=== PATIENT | female | born 2000 | race Caucasian/White ===

== ENCOUNTER 2024-11-16 10:19 | Emergency (ER) | payer BC, SELFPAY ==
[2024-11-16 10:23] VITALS: BP 125/93; PULSE 84; TEMP 36.7; O2SAT 99; BMI 29.3
--- NOTE | 2024-11-16 10:34 | ED_ITS ---
HPI HPI - General Adult General Chief complaint: Headache Stated complaint: 10 WEEKS MIGRAINE Time Seen by Provider: 11/16/24 10:21 Source: patient Mode of arrival: walk-in History of Present Illness HPI narrative: 24-year-old female who is 10 weeks presents for a 3-day history of headache. She states she has a history of migraine headaches that she typically gets when she is . It is frontal and at the base of her skull. No trauma fever or stiff neck or localized weakness. She has had no issues with this and has no vaginal bleeding. The pain is moderate and continuous . Related Data Home Medications ?Medication ?Instructions ?Recorded ?Confirmed PO DAILY 11/16/24 ondansetron 4 mg disintegrating 4 mg PO TID-QID PRN na usea and 11/16/24 11/16/24 tablet vomiting Allergies Allergy/AdvReac Type Severity Reaction Status Date / Time adhesive tape Allergy Rash Verified 11/16/24 10:23 Review of Systems ROS Narrative A ten point review of systems is negative except as noted above. PFSH PFSH Social History Little interest or pleasure in doing things: not at all Feeling down, depressed, or hopeless: not at all Exam Narrative Exam Narrative: Nurses note and vital signs reviewed and patient is not hypoxic. General: The patient appears well and in no apparent distress. Patient is resting comfortably on cart. Skin: Warm, dry, no pallor noted. There is no rash noted. Head: Normocephalic, atraumatic; neck supple, no nuchal rigidity Eye: Normal conjunctiva, no drainage, EOMI. PERRL Ears, Nose, Mouth, and Throat: oral mucosa is moist. Nares patent. Cardiovascular: Regular Rate and Rhythm Respiratory: Patient is in no distress, no accessory muscle use, lungs are clear to auscultation, no wheezing, rales or rhonchi Back: non-tender GI: Soft and nontender Musculoskeletal: The patient has no evidence of calf tenderness, no pitting edema, symmetrical pulses noted bilaterally Neurological: A&O, normal speech; upper and lower extremity strength symmetric and intact Psychiatric: Cooperative Constitutional Vital Signs, click to edit/add: Last Vital Signs Temp 98.0 F 11/16/24 10:23 Pulse 84 11/16/24 10:23 Resp 20 11/16/24 10:23 BP 125/93 H 11/16/24 10:23 Pulse Ox 99 11/16/24 10:23 Course Vital Signs Vital signs: Vital Signs Temperature 98.0 F 11/16/24 10:23 Pulse Rate 84 11/16/24 10:23 Respiratory Rate 20 11/16/24 10:23 Blood Pressure 125/93 H 11/16/24 10:23 Pulse Oximetry 99 11/16/24 10:23 Temperature 98.0 F 11/16/24 10:23 Pulse Rate 84 11/16/24 10:23 Respiratory Rate 20 11/16/24 10:23 Blood Pressure 125/93 H 11/16/24 10:23 Pulse Oximetry 99 11/16/24 10:23 Medical Decision Making MDM Narrative Medical decision making narrative: The initial blood pressure was mildly elevated but it corrected without intervention. She is feeling much better now and wishes to be discharged and she will follow-up with her doctor in [place]. Treatment diagnosis and follow- up were discussed with the patient. Differential Diagnosis Differential Diagnosis: Migraine headache, dehydration, nonspecific headache Lab Data Lab results reviewed: Yes I reviewed the patient's lab results Labs: Lab Results 11/16/24 Range/Units 10:40 WBC 11.3 H (4.0-11.0) 10^3/uL RBC 5.03 (4.20-5.40) 10^6/uL Hgb 13.0 (12.0-16.0) g/dL Hct 39.4 (36.0-48.0) % MCV 78.3 L (81.0-99.0) fL MCH 25.8 L (26.7-34.0) pg MCHC 33.0 (29.9-35.2) g/dL RDW 14.5 (11.0-15.0) % Plt Count 284 (150-450) 10^3/uL MPV 10.4 (9.5-13.5) fL Neut % (Auto) 72.9 (43.0-75.0) % Lymph % (Auto) 21.4 (20.5-60.0) % [place] % (Auto) 4.5 (1.7-12.0) % Eos % (Auto) 0.6 L (0.9-7.0) % Baso % (Auto) 0.2 (0.2-2.0) % Neut # (Auto) 8.3 H (1.4-6.5) 10^3/uL Lymph # (Auto) 2.4 (1.2-3.8) 10^3/uL [place] # (Auto) 0.5 (0.3-0.8) 10^3/uL Eos # (Auto) 0.1 (0.0-0.7) 10^3/uL Baso # (Auto) 0.0 (0.0-0.1) 10^3/uL Abs Immat Gran (auto) 0.04 H (0.00-0.03) 10^3/uL Imm/Tot Granulo (auto) 0.4 (0.0-0.5) % Sodium 133 L (136-145) mmol/L Potassium 4.1 (3.5-5.1) mmol/L Chloride 98 (98-107) mmol/L Carbon Dioxide 26.1 (21.0-32.0) mmol/L Anion Gap 13.0 BUN 7.0 (7.0-18.0) mg/dL Creatinine 0.61 (0.55-1.02) mg/dL Est GFR ( Amer) >60 (>=60 mL/min/1.73m^2) Est GFR (Non-Af Amer) >60 (>=60 mL/min/1.73m^2) BUN/Creatinine Ratio 11.5 Glucose 114 H (74-106) mg/dL Calcium 8.9 (8.5-10.1) mg/dL Discharge Plan Discharge Chief Complaint: Headache Clinical Impression: Headache Patient Disposition: Home, Self-Care Time of Disposition Decision: 11:51 Condition: Good Mode of Transportation: Private Vehicle Prescriptions / Home Meds: No Action ondansetron 4 mg tablet,disintegrating 4 mg PO TID-QID PRN (Reason: nausea and vomiting) PO DAILY Print Language: [place] Instructions: Acute Headache (ED) Referrals: Physician,Non-Staff, MD [Primary Care Provider] - 1 week
[2024-11-16] MEDS: 0.9 % SODIUM CHLORIDE 1,000 ML 1000 ML IV (10:43)
[2024-11-16] MEDS: ONDANSETRON PF 4 MG/2 ML VIAL IV (10:44)
[2024-11-16] MEDS: DIPHENHYDRAMINE HCL 50 MG/ML VIAL 25 MG IVP (10:44)
[2024-11-16 10:45] LABS: Basophils Percent Auto 0.2 % (0.2-2.0); Eosinophils Absolute Auto 0.1 10^3/uL (0.0-0.7); Eosinophils Percent Auto 0.6 % (0.9-7.0); Hematocrit 39.4 % (36.0-48.0); Immature Granulocytes Abs Auto 0.04 10^3/uL (0.00-0.03); Immature Granulocytes Pct Auto 0.4 % (0.0-0.5); Lymphocytes Absolute Auto 2.4 10^3/uL (1.2-3.8); Lymphocytes Percent Auto 21.4 % (20.5-60.0); Mean Corpuscular Hemoglobin 25.8 pg (26.7-34.0); Mean Corpuscular Volume 78.3 fL (81.0-99.0); Mean Platelet Volume 10.4 fL (9.5-13.5); Monocytes Absolute Auto 0.5 10^3/uL (0.3-0.8); Monocytes Percent Auto 4.5 % (1.7-12.0); Neutrophils Absolute Auto 8.3 10^3/uL (1.4-6.5); Neutrophils Percent Auto 72.9 % (43.0-75.0); Platelet Count 284 10^3/uL (150-450); Red Blood Count 5.03 10^6/uL (4.20-5.40); Red Cell Distribution Width 14.5 % (11.0-15.0); White Blood Count 11.3 10^3/uL (4.0-11.0)
[2024-11-16] MEDS: METHYLPREDNISOLONE SOD SUCC PF 125 MG/2 ML VIAL IVP (10:45)
[2024-11-16 11:03] LABS: BUN Creatinine Ratio 11.5; Calcium 8.9 mg/dL (8.5-10.1); Carbon Dioxide 26.1 mmol/L (21.0-32.0); Chloride 98 mmol/L (98-107); Estimated GFR (African America >60 (>=60 mL/min/1.73m^2); Estimated GFR (Non-African Ame >60 (>=60 mL/min/1.73m^2); Glucose 114 mg/dL (74-106); Potassium 4.1 mmol/L (3.5-5.1); Sodium 133 mmol/L (136-145)
[2024-11-16 12:06] VITALS: BP 108/78
== END 2024-11-16 11:57 | disposition home or self-care (01) ==
PROVIDERS: Emergency Provider Emergency Medicine
DX: O99.891 Other specified diseases and conditions complicating pregnancy (principal); R51.9 Headache, unspecified; Z3A.10 10 weeks gestation of pregnancy
CPT/HCPCS: 36415; 80048; 85025; 96374; 96375; 99284; J1200; J2405; J2919

== ENCOUNTER 2024-12-27 10:50 | Emergency (ER) | payer BC, SELFPAY ==
--- OUTSIDE RECORDS SUMMARY | 2024-12-16 15:02 | XMS_ITS | Encounter Summary ---
Author Organization [facility] Address [address] [place] [address] Care Team Providers Care Order Editor Name Role Phone Evie Madrid DO Primary Care Provider [phone] Reason for Visit * Reason Comments Vomiting HG, cannot keep wate r or food down,seen yesterday for IV fluids. SAMANTA 06/12/2025, 15 weeks . * Auth/Cert (Routine) Specialty Diagnoses / Procedures Referred By Contac t Referred To Contact Referral ID Status Reason Start Date Expiration Date Visits Re quested Visits Authorized [id number] 1 1 Encounter Details Date Type Department Care Team (Late st Contact Info) Description 12/16/2024 3:02 PM EDT - 12/17/2024 11:00 AM EDT Hospital Encounter [facility] Emergency [id number] [place] [address] [place] [address] [place] [address] Hyperemesis gravidarum ([facility]) (Primary Dx) Discharge Disposition: Home or Self Care Social History Tobacco Use Types Packs/Day Years Used Date Smoking Tobacco: Never Smokeless Tobacco: Never Alcohol Use Standard Drinks/Week Comments Yes 0 (1 standard drink = 0.6 oz pur e alcohol) Humiliation, Afraid, Rape, and Kick questionnair e Answer Date Recorded Within the last year, have y ou been afraid of your partner or ex-partner? No 12/16/2024 Within the last year, have y ou been humiliated or emotionally abused in other ways by your partner or ex-partner? No Within the last year, have y ou been kicked, hit, slapped, or otherwise physically hurt by your partner or ex-partner? No 12/16/2024 Within the last year, have y ou been raped or forced to have any kind of sexual activity by your partner or ex-partner? No 12/16/2024 Comments Unknown Sex and Gender Information Value Date Recorded Sex Assigned at Female 09/27/2023 10:24 PM EDT Legal Sex Female 10:24 PM EDT Gender Identity Female 09/27/2023 10:24 PM EDT Sexual Orientation Straight 09/27/2023 10 :24 PM EDT documented as of this encounter Last Filed Vital Signs Vital Sign Reading Time Taken Comments Blood Pressure 106/65 12/17/2024 7:59 AM EDT Pulse 74 12/17/2024 7:59 AM EDT Temperature 36.9 C (98.4 F) 12/17/2024 7:59 AM EDT Respiratory Rate 16 12/17/2024 7:59 AM EDT Oxygen Saturation 99% 12/17/2024 7:59 AM EDT Inhaled Oxygen Concentration - - Weight 75 kg (165 lb 5.5 oz) 12/16/2024 2:31 PM EDT Height 157.5 cm (5' 2 ) 12/16/2024 2:31 PM EDT Body Mass Index 30.24 12/16/2024 2:31 PM EDT documented in this encounter Medications at Time of Discharge cholecalciferol (VITAMIN D3) 50 MCG (1999 UT) capsule Take 50 mcg by mouth daily. 11/10/2024 doxylamine (UNISOM) 25 MG Take 25 mg by mouth nightly as needed for Sleep. FIORICET 50-300-40 MG per etended-release capsule Take 1 capsule by mouth every 4 hours as needed. 11/17/2024 metoclopramide (REGLAN) 10 MG tablet Take 10 mg by mouth 3 times daily (before meals). 12/16/2024 ondansetron (ZOFRAN-ODT) 4 mg disintegrating tablet Take 4 mg by mouth every 6 hours as needed for Nausea/Vomiti ng. Pyridoxine HCl (VITAMIN B6 PO) Take 1 tablet by mouth daily. documented as of this encounter ED Notes * Ana Cristina Miranda MD - 12/16/2024 3:08 PM EDT [facility] 12/16/2024 CHIEF COMPLAINT: CHIEF COMPLAINT: Nausea and vomiting History provided by patient or other source. Ana Cristina Miranda MD acting as scribe for Attending Provider: Ana Cristina Miranda MD HISTORY OF PRESENT ILLNESS: 3:08 PM Karol Cuello is a 24 y.o. female who has a past medical history significant for anxiety presents to the Emergency Center with her aunt with complaints of nausea and vomiting for the past 3 weeks. Patient reports that she followed up with Natalie Cho, Certified Nurse End Worker at [facility] in [place], yesterday and she told me that I have hyperemesis gravidarum because I've been throwing up non-stop for the past 3 weeks. Like today I couldn't even keep water down. Patient states that she is on her fifth to sixth round of nausea medications and yesterday at the ER I got IV Zofran. Yesterday was my fourth trip to the ER for nausea and vomiting. Patient states priorto three weeks ago she was not having any issues with nausea or vomiting. Patient denies any abdominal pain or vaginal bleeding, but she notes I am getting some light cramping from all the puking I'm doing. Patient states that she has also been experiencing migraines due to all the nausea and vomiting. Patient reports that she is A2 and she will be 15 week on Wednesday (12/19). Patient states that her two prior pregnancies delivered at full term and she did not have any complications while or post delivery. Patient reports that she had heart tones yesterday and everything sounded good. I haven't had an ultrasound in a while. Patient notes that she is taking Fioricet, Vitamin D3, Zofran, Unisom and Vitamin B6 three times a day. Patient denies fever, chills, diarrhea, neck pain, back pain, chest pain, chest pressure, chest heaviness, chest tightness, lower extremity edema, calf pain, cough, congestion, sore throat or shortness of breath. There are no additional complaints or modifying factors at this time. Primary Care Physician: DO SUE Greenwood As above Patient's Medications New Prescriptions No medications on file Previous Medications EPINEPHRINE 0.3 MG/0.3ML AUTO-INJECTOR ESCITALOPRAM (LEXAPRO) 10 MG TABLET take 1 Tablet by mouth once daily. FAMOTIDINE (PEPCID) 20 MG TABLET take 1 Tablet by mouth twice daily. IBUPROFEN (MOTRIN) 600 MG TABLET take 1 Tablet by mouth every 8 hours as needed for FOR MODERATE PAIN. ONDANSETRON (ZOFRAN-ODT) 4 MG DISINTEGRATING TABLET take 1 Tablet by mouth every 6 hours as needed for FOR NAUSEA/VOMITING. Modified Medications No medications on file Discontinued Medications No medications on file Allergies[1] Past Medical History[2] Past Surgical History[3] Social History Socioeconomic History Marital status: Tobacco Use Smoking status: Never Smokeless tobacco: Never Substance and Sexual Activity Alcohol use: Yes Drug use: Yes Types: Marijuana Family History[4] PHYSICAL EXAM: BP 114/80 Pulse 86 Temp 36.3 ??C (Oral) Resp 20 Ht 1.575 m (5' 2 ) Wt 75 kg SpO2 99% BMI 30.24 kg/m?? Physical Exam Constitutional: General: She is not in acute distress. Appearance: She is not ill-appearing. HENT: Head: Normocephalic. Mouth/Throat: Mouth: Mucous membranes are dry. Comments: Slightly dry mucus membranes. Eyes: Pupils: Pupils are equal, round, and reactive to light. Cardiovascular: Rate and Rhythm: Normal rate and regular rhythm. Pulmonary: Effort: Pulmonary effort is normal. Breath sounds: Normal breath sounds. Abdominal: General: Abdomen is flat. Palpations: Abdomen is soft. Tenderness: There is no abdominal tenderness. Comments: Gravid. Skin: General: Skin is warm and dry. Capillary Refill: Capillary refill takes 2 to 3 seconds. Neurological: General: No focal deficit present. Psychiatric: Mood and Affect: Mood normal. RESULTS: Results for orders placed or performed during the hospital encounter of 12/16/24 Complete Blood Count w/Differential Result Value Ref Range White Blood Cell 10.8 (H) 3.3 - 10.7 x10*9/L Red Blood Cell 4.46 3.87 - 5.08 x10*12/L Hemoglobin 11.1 (L) 12.1 - 15.0 g/dL Hematocrit 34.3 (L) 35.4 - 44.2 % Mean Cell Volume 76.9 (L) 79.5 - 100.4 fL Mean Cell Hemoglobin 24.9 (L) 27.5 - 33.4 pg Mean Cell Hemoglobin Concentration 32.4 31.5 - 35.4 g/dL Red Cell Distribution Width 14.3 11.5 - 15.4 % Platelet 255 150 - 400 x10*9/L Mean Platelet Volume 10.6 8.0 - 12.0 fL Neutrophil Automated Absolute 8.47 (H) 1.55 - 7.24 x10*9/L Lymphocyte Automated Absolute 1.82 1.05 - 4.04 x10*9/L Monocyte Automated Absolute 0.42 0.00 - 0.84 x10*9/L Eosinophil Automated Absolute 0.04 0.00 - 0.54 x10*9/L Basophil Automated Absolute 0.02 0.00 - 0.14 x10*9/L Immature Granulocyte Automated Absolute 0.06 (H) 0.00 - 0.03 x10*9/L Immature Granulocyte Automated 0.6 0.0 - 1.0 % NUCLEATED RED BLOOD CELLS AUTOMATED 0.0 <=0.0 % Basic Metabolic Panel (BMP) Result Value Ref Range Sodium 134 (L) 135 - 145 mmol/L Potassium 3.8 3.5 - 5.2 mmol/L Chloride 106 98 - 111 mmol/L Bicarbonate 19 (L) 20 - 29 mmol/L Anion Gap 9 5 - 17 mmol/L Glucose 89 70 - 99 mg/dL Blood Urea Nitrogen (BUN) 5 (L) 7 - 25 mg/dL Creatinine 0.53 0.50 - 1.10 mg/dL eGFR 133 >60 mL/min/1.73 m2 Calcium 8.6 8.5 - 10.5 mg/dL Beta Human Chorionic Gonadotropin (hCG) Quantitative Result Value Ref Range Human Chorionic Gonadotropin Quantitative 64,297 (H) <=5 mIU/mL Urinalysis with Microscopic Narrative The following orders were created for panel order Urinalysis with Microscopic. Procedure Abnormality Status --------- ------ Urinalysis With Microsc...[[id number]] Abnormal Final result Urine Mathur Tube[[id number]] Final result Please view results for these tests on the individual orders. Urinalysis With Microscopic Result Value Ref Range Urine Color Yellow Urine Clarity Clear Clear Urine Glucose Negative Negative mg/dL Urine Bilirubin Negative Negative Urine Ketones >=80 (P) Negative mg/dL Urine Specific [place] 1.013 1.005 - 1.030 Urine Blood Negative Negative U pH 6.0 5.0 - 8.0 Urine Protein Negative Negative mg/dL Urine Urobilinogen 1.0 <2.0 mg/dL Urine Nitrite Negative Negative Urine Leukocyte Esterase Negative Negative Urine RBC 0-2 0-2 Negative /HPF Urine WBC 0-5 0-5 Negative /HPF Urine Squamous Epithelial Cells 0-2 0 - 5 /HPF Urine Hyaline Casts 0-2 0-2 Negative /LPF Urine Bacteria Negative Negative /HPF Urinalysis with Microscopic Narrative The following orders were created for panel order Urinalysis with Microscopic. Procedure Abnormality Status --------- ------ Urinalysis With Microsc...[[id number]] Abnormal Final result Urine Mathur Tube[[id number]] In process Please view results for these tests on the individual orders. Urinalysis With Microscopic Result Value Ref Range Urine Color Yellow Urine Clarity Clear Clear Urine Glucose Negative Negative mg/dL Urine Bilirubin Negative Negative Urine Ketones >=80 (P) Negative mg/dL Urine Specific [place] 1.021 1.005 - 1.030 Urine Blood Negative Negative U pH 6.0 5.0 - 8.0 Urine Protein Negative Negative mg/dL Urine Urobilinogen 1.0 <2.0 mg/dL Urine Nitrite Negative Negative Urine Leukocyte Esterase Negative Negative Urine RBC 0-2 0-2 Negative /HPF Urine WBC 0-5 0-5 Negative /HPF Urine Squamous Epithelial Cells 0-2 0 - 5 /HPF Urine Hyaline Casts 0-2 0-2 Negative /LPF Urine Bacteria Negative Negative /HPF Electrocardiogram, Complete Narrative Ventricular Rate 73 BPM Atrial Rate 73 BPM P-R Interval 176 ms QRS Duration 88 ms Q-T Interval 400 ms QTC Calculation(Bazett) 440 ms Calculated P Gilman 29 degrees Calculated R Gilman 18 degrees Calculated T Gilman 2 degrees Diagnosis Normal sinus rhythm Normal ECG No previous ECGs available Confirmed by Fernando Crockett ([id number]) on 12/16/2024 5:36:07 PM ED COURSE/MDM: 3:08 PM I have evaluated the patient and reviewed their electronic medical record. Laboratory studies including CBC, BMP, beta hCG as well as a urinalysis and an EKG will be obtained. Patient will begiven Zofran, an IV Bolus, Fioricet and Phenergan. 3:31 PM Spoke with [facility] application engineer physician who states that they can get the patient into the office for an appointment on Wednesday, December 18, 2024 and it is okay to start Phenergan now andat time of discharge in addition to her current regimen. scallop cutter physician also requesting heart tones. 3:58 PM Bedside heart tones 141 BPM. Robust movement noted. Deferred pelvic exam in theabsence of any pelvic/ complaints. 7:50 PM Patient notes improvement in headache and symptoms. She is feeling improved. Tolerated PO challenge per bedside RN. Plan for repeat UA to assess for improvement of urine ketones. 9:58 PM UA still with greater than 80 ketones. Patient notes tolerating PO but still has low level nausea. Nervous about going home. Will keep in EC observation for continued hydration with repeat UAin the AM and I have written for ongoing antiemetics. EC Medical Decision Making Documentation: 1. Consideration of Admission/Observation/Escalation of care including admission/observation was see above 2. Discussion with Other Healthcare Providers Management of the patient was discussed with the following healthcare providers: other: application engineer physician of [facility]. 3. Independent Interpretation I performed an independent interpretation of the following: Rhythm strip: My interpretation is NSR 4. Discussion of Findings with Radiology There were no discussions with radiology about test interpretation. 5. Discussion with Independent Historian There were no discussions with any independent historians besides the patient. 6. Review of External (Non-ED) Record see above 7. Tests Considered But Not Performed see above 8. Prescription Medication Considered But Not Given see above 9. Chronic Condition Affecting Care Patient's care was impacted by: Other: 10. Social Determinants of Health Significantly Affecting Care There were no social drivers of health (e.g., housing, economic circumstances, unemployment) that affected care of the patient. DISPOSITION: EC Observation FINAL IMPRESSION: Hyperemesis gravidarum Core Measure ED Treatment Team Provider Role From To Ana Cristina Miranda MD Attending Provider 12/16/24 2810 -- Note has been documented by Nicolas Sesay (Route Contractor) on 12/16/2024. [1] Allergies Allergen Reactions Iodine Other When applied to skin caused blisters( betadine solution) Wound Dressing Adhesive Hives and Rash/Itching [2] Past Medical History: Diagnosis Date Anxiety disorder Motion sickness Panic attacks Postoperative nausea and vomiting Shoulder instability, left [3] Past Surgical History: Procedure Laterality Date HX OTHER SURGICAL HISTORY Right 12/2015 shoulder arthroscopy, labral tear repair HX OTHER SURGICAL HISTORY Left 06/25/2016 arthroscopy, labral tear repair HX WISDOM TEETH EXTRACTION 11/2015 [4] Family History Problem Relation Age of Onset Bipolar Disorder Mother Hypertension Father Gout Sister Kayley Disease Sister Bipolar Disorder Sister Cervical Cancer Maternal Grandmother Ana Cristina Miranda MD 12/16/24 2200 documented in this encounter Miscellaneous Notes * ED Progress Note - Marsha Leon MD - 12/17/2024 9:01 AM EDT Images from the original note were not included. ECS ED Observation History and Physical 12/17/2024 CHIEF COMPLAINT: Vomiting ASSESSMENT / PLAN: Hyperemesis Ua ketones resolved this morning Pt did eat No abd pain Abd-soft,nt,nd No vaginal bleeding Has followup with ob SUBJECTIVE: Karol Cuello is a 24 y.o. female being placed in observation in the ED. For rest of historyplease refer to original ED note. Problem List[1] Past Medical History: Diagnosis Date Anxiety disorder Motion sickness Panic attacks Postoperative nausea and vomiting Shoulder instability, left Past Surgical History: Procedure Laterality Date HX OTHER SURGICAL HISTORY Right 12/2015 shoulder arthroscopy, labral tear repair HX OTHER SURGICAL HISTORY Left 06/25/2016 arthroscopy, labral tear repair HX WISDOM TEETH EXTRACTION 11/2015 Current Medications[2] Allergies[3] Social History[4] Family History Problem Relation Age of Onset Bipolar Disorder Mother Hypertension Father Gout Sister Kayley Disease Sister Bipolar Disorder Sister Cervical Cancer Maternal Grandmother Review of Systems OBJECTIVE: BP 106/65 Pulse 74 Temp 36.9 ??C (Oral) Resp 16 Ht 1.575 m (5' 2 ) Wt 75 kg SpO2 99% BMI 30.24 kg/m?? Please refer to ED note for physical exam PERTINENT LABS AND STUDIES: Labs Reviewed COMPLETE BLOOD COUNT (CBC) W/DIFFERENTIAL - Abnormal Result Value White Blood Cell 10.8 (*) Red Blood Cell 4.46 Hemoglobin 11.1 (*) Hematocrit 34.3 (*) Mean Cell Volume 76.9 (*) Mean Cell Hemoglobin 24.9 (*) Mean Cell Hemoglobin Concentration 32.4 Red Cell Distribution Width 14.3 Platelet 255 Mean Platelet Volume 10.6 Neutrophil Automated Absolute 8.47 (*) Lymphocyte Automated Absolute 1.82 Monocyte Automated Absolute 0.42 Eosinophil Automated Absolute 0.04 Basophil Automated Absolute 0.02 Immature Granulocyte Automated Absolute 0.06 (*) Immature Granulocyte Automated 0.6 NUCLEATED RED BLOOD CELLS AUTOMATED 0.0 BASIC METABOLIC PANEL - Abnormal Sodium 134 (*) Potassium 3.8 Chloride 106 Bicarbonate 19 (*) Anion Gap 9 Glucose 89 Blood Urea Nitrogen (BUN) 5 (*) Creatinine 0.53 eGFR 133 Calcium 8.6 HCG, QUANTITATIVE - Abnormal Human Chorionic Gonadotropin Quantitative 64,297 (*) URINALYSIS WITH MICROSCOPIC - Abnormal Urine Color Yellow Urine Clarity Clear Urine Glucose Negative Urine Bilirubin Negative Urine Ketones >=80 (*) Urine Specific [place] 1.013 Urine Blood Negative U pH 6.0 Urine Protein Negative Urine Urobilinogen 1.0 Urine Nitrite Negative Urine Leukocyte Esterase Negative Urine RBC 0-2 Urine WBC 0-5 Urine Squamous Epithelial Cells 0-2 Urine Hyaline Casts 0-2 Urine Bacteria Negative URINALYSIS WITH MICROSCOPIC - Abnormal Urine Color Yellow Urine Clarity Clear Urine Glucose Negative Urine Bilirubin Negative Urine Ketones >=80 (*) Urine Specific [place] 1.021 Urine Blood Negative U pH 6.0 Urine Protein Negative Urine Urobilinogen 1.0 Urine Nitrite Negative Urine Leukocyte Esterase Negative Urine RBC 0-2 Urine WBC 0-5 Urine Squamous Epithelial Cells 0-2 Urine Hyaline Casts 0-2 Urine Bacteria Negative URINALYSIS WITH MICROSCOPIC Narrative: The following orders were created for panel order Urinalysis with Microscopic. Procedure Abnormality Status --------- ------ Urinalysis With Microsc...[[id number]] Abnormal Final result Urine Mathur Tube[[id number]] Final result Please view results for these tests on the individual orders. URINE MATHUR TUBE URINALYSIS WITH MICROSCOPIC Narrative: The following orders were created for panel order Urinalysis with Microscopic. Procedure Abnormality Status --------- ------ Urinalysis With Microsc...[[id number]] Abnormal Final result Urine Mathur Tube[[id number]] Final result Please view results for these tests on the individual orders. URINE MATHUR TUBE URINALYSIS WITH MICROSCOPIC Narrative: The following orders were created for panel order Urinalysis with Microscopic. Procedure Abnormality Status --------- ------ Urinalysis With Microsc...[[id number]] Final result Urine Mathur Tube[[id number]] Final result Please view results for these tests on the individual orders. URINALYSIS WITH MICROSCOPIC Urine Color Yellow Urine Clarity Clear Urine Glucose Negative Urine Bilirubin Negative Urine Ketones Negative Urine Specific [place] 1.017 Urine Blood Negative U pH 7.5 Urine Protein Negative Urine Urobilinogen 1.0 Urine Nitrite Negative Urine Leukocyte Esterase Negative Urine RBC 0-2 Urine WBC 0-5 Urine Squamous Epithelial Cells 0-2 Urine Hyaline Casts 0-2 Urine Bacteria Negative URINE MATHUR TUBE No orders to display CSN: [id number] Electronically signed by: [1] Patient Active Problem List Diagnosis Menorrhagia with regular cycle Iron deficiency anemia due to chronic blood loss Screening for malignant neoplasm of the cervix Traumatic bone cyst of jaw Anxiety [2] Current Facility-Administered Medications Medication Dose Route Frequency Provider Last Rate Last Admin ondansetron (ZOFRAN) injection 4 mg 4 mg Intravenous Q8H PRN Ana Cristina Miranda MD 4 mg at 12/16/24 1120 promethazine (PHENERGAN) 25 mg in dextrose 5% 51 mL IVPB 25 mg Intravenous Q6H PRN Ana Cristina Miranda MD Stopped at 12/17/24 0637 sodium chloride 0.9% (NS) infusion 125 mL/hr Intravenous Continuous Ana Cristina Miranda MD 125 mL/hr at 12/17/24 0427 125 mL/hr at 12/17/24 0427 Current Outpatient Medications Medication Sig Dispense Refill cholecalciferol (VITAMIN D3) 50 MCG (1999 UT) capsule Take 50 mcg by mouth daily. doxylamine (UNISOM) 25 MG Take 25 mg by mouth nightly as needed for Sleep. FIORICET 50-300-40 MG per etended-release capsule Take 1 capsule by mouth every 4 hours as needed. metoclopramide (REGLAN) 10 MG tablet Take 10 mg by mouth 3 times daily (before meals). ondansetron (ZOFRAN-ODT) 4 mg disintegrating tablet Take 4 mg by mouth every 6 hours as needed for Nausea/Vomiting. Pyridoxine HCl (VITAMIN B6 PO) Take 1 tablet by mouth daily. [3] Allergies Allergen Reactions Iodine Other When applied to skin caused blisters( betadine solution) Wound Dressing Adhesive Hives and Rash/Itching [4] Social History Socioeconomic History Marital status: Tobacco Use Smoking status: Never Smokeless tobacco: Never Substance and Sexual Activity Alcohol use: Yes Drug use: Yes Types: Marijuana * ED Nurse Note - Bruce Kelley RN - 12/17/2024 7:19 AM EDT Received report from EC RNLore. Pt A&Ox4, ABC's intact, VSS, RR even and unlabored on RA, call light and personal belongings within reach. Safety precautions maintained. 0905 Pt regular diet per Dr. Leon. Pt updated 1030 Pt tolerated breakfast well. Discharge order in and discharge teaching performed for pt and pt's father at bedside. All questions answered. IV removed without complications. All acute needs met. * ED Nurse Note - Lore Puentes - 12/16/2024 11:17 PM EDT Assumed care of pt, introduced self. On first encounter pt is resting comfortably in stretcher. Pt displays no s/s of acute distress. RR even and unlabored, ABC's intact. Bed locked and in lowest position. Call light within reach, all safety precautions maintained. * ED Nurse Note - Hernando Perez - 12/16/2024 7:38 PM EDT Assumed care of pt. Introduced self and explained POC. On first encounter, pt is resting comfortably in stretcher. Pt displays no s/s of acute distress. RR even and unlabored. ABC's intact. Bed is locked and in lowest position. Call light within reach. All safety precautions maintained. * ED Nurse Note - Rosanne Hubbard RN - 12/16/2024 4:02 PM EDT Initial encounter with pt. preforming bedside ultrasound, + hear tones HR 141. Pt lying in stretcher, A&OX4, speech clear. Pt presents to EC c/o N/V. Pt currently 15 weeks . Pt seen here yesterday for same given IV fluids and Zofran. Pt states she is unable to keep foodand fluids down prompting her visit today. Pt denies any further concerns at this time, call light within reach. Pt updated with plan of care. 1755 Pt passed PO challenge, ECP made aware. Pt states nausea and CASTREJON have improved. Pt updated with planof care. No concerns at this time, call light within reach. documented in this encounter Plan of Treatment Not on file documented as of this encounter Procedures Procedure Name Priority Date/Time Associated Diagnosis Comments URINE MATHUR TUBE Timed 12/17/2024 6:38 AM EDT URINALYSIS WITH MICROSCOPIC Timed 12/17/2024 6:38 AM EDT URINALYSIS WITH MICROSCOPIC STAT 12/17/2024 6:38 AM EDT URINE MATHUR TUBE Timed 12/16/2024 9:18 PM EDT URINALYSIS WITH MICROSCOPIC Timed 12/16/2024 9:18 PM EDT URINALYSIS WITH MICROSCOPIC STAT 12/16/2024 9:18 PM EDT URINE MATHUR TUBE Timed 12/16/2024 5:00 PM EDT URINALYSIS WITH MICROSCOPIC Timed 12/16/2024 5:00 PM EDT URINALYSIS WITH MICROSCOPIC STAT 12/16/2024 5:00 PM EDT ELECTROCARDIOGRAM, COMPLETE STAT 12/16/2024 4:07 PM EDT COMPLETE BLOOD COUNT (CBC) W/DIFFERENTIAL STAT 12/16/2024 3:31 PM EDT HCG, QUANTITATIVE STAT 12/16/2024 3:3 1 PM EDT BASIC METABOLIC PANEL STAT 12/16/2024 3:31 PM EDT documented in this encounter Results * Urine Mathur Tube (12/17/2024 6:38 AM EDT) Urine URINE SPECIMEN OBTAINED BY CLEAN CATCH PROCEDURE / Unknown 12/17/2024 6:38 AM EDT 12/17/2024 6:43 AM EDT us Ana Cristina Miranda MD LAB URINE ORDERABLES Final Re sult [facility] [id number] [place] [address] * Urinalysis With Microscopic (12/17/2024 6:38 AM EDT) Urine Color Yellow 12/17/2024 6:51 AM EDT [facility] Urine Clarity Clear Clear 12/17/2024 6:51 AM EDT [facility] Urine Glucose Negative Negative mg/dL 12/17/2024 6:51 AM T [facility] Urine Bilirubin Negative Negative 6:51 AM EDT [facility] Urine Ketones Negative Negative mg/dL 12/17/2024 6:51 AM EDT [facility] Urine Specific [place] 1.017 1.005 - 1.030 12/17/2024 6:51 AM EDT [facility] Urine Blood Negative Negative 12/17/2024 6:51 AM [facility] U pH 7.5 5.0 - 8.0 12/17/2024 6:51 AM T [facility] Urine Protein Negative Negative mg/dL 12/17/2024 6:51 AM T [facility] Urine Urobilinogen 1.0 <2.0 mg/dL 12/17/2024 6:51 AM T [facility] Urine Nitrite Negative Negative 12/17/2024 6:51 AM [facility] Urine Leukocyte Esterase Negative Negative 12/17/2024 6:51 AM T [facility] Urine RBC 0-2 0-2 Negative /HPF 12/17/2024 6:51 AM [facility] Urine WBC 0-5 0-5 Negative /HPF 12/17/2024 6:51 AM EDT [facility] Urine Squamous Epithelial Cells 0-2 0 - 5 /HPF 12/17/2024 6:51 AM T [facility] Comment:Epithelial cell coun t may include squamous, transitional and renal tubular epithelial cells Urine Hyaline Casts 0-2 0-2 Negative /LPF 12/17/2024 6:51 AM EDT [facility] Comment: Total cast count will include hyaline casts and may include pathologic casts. See report below for pathologic casts identification, if present. Urine Bacteria Negative Negative /HPF 12/17/2024 6:51 AM EDT [facility] Urine URINE SPECIMEN OBTAINED BY CLEAN CATCH PROCEDURE / Unknown 12/17/2024 6:38 AM EDT 12/17/2024 6:43 AM EDT Ana Cristina Miranda MD LAB URINE ORDERABLES Final Re sult Performing Organization Address [facility]/ZIP Co de Phone Number [facility] [address] [place] [address] * Urine Mathur Tube (12/16/2024 9:18 PM EDT) Urine URINE SPECIMEN OBTAINED BY CLEAN CATCH PROCEDURE / Unknown 12/16/2024 9:18 PM EDT 12/16/2024 9:24 PM EDT Ana Cristina Miranda MD LAB URINE ORDERABLES Final Re sult Performing Organization Address City/[facility]/ZIP Co de Phone Number [facility] [address] [place] [address] * (ABNORMAL) Urinalysis With Microscopic (12/16/2024 9:18 PM EDT) Urine Color Yellow 12/16/2024 9:38 PM EDT [facility] Urine Clarity Clear Clear 12/16/2024 9:38 PM EDT [facility] Urine Glucose Negative Negative mg/dL 12/16/2024 9:38 PM EDT [facility] Urine Bilirubin Negative Negative 9:38 PM EDT [facility] Urine Ketones >=80(CRITIC AL) Negative mg/dL 12/16/2024 9:38 PM EDT [facility] Urine Specific [place] 1.021 1.005 - 1.030 12/16/2024 9:38 PM EDT [facility] Urine Blood Negative Negative 12/16/2024 9:38 PM EDT [facility] U pH 6.0 5.0 - 8.0 12/16/2024 9:38 PM EDT [facility] Urine Protein Negative Negative mg/dL 12/16/2024 9:38 PM EDT [facility] Urine Urobilinogen 1.0 <2.0 mg/dL 12/16/2024 9:38 PM EDT [facility] Urine Nitrite Negative Negative 12/16/2024 9:38 PM EDT [facility] Urine Leukocyte Esterase Negative Negative 12/16/2024 9:38 PM EDT [facility] Urine RBC 0-2 0-2 Negative /HPF 12/16/2024 9:38 PM EDT [facility] Urine WBC 0-5 0-5 Negative /HPF 12/16/2024 9:38 PM EDT [facility] Urine Squamous Epithelial Cells 0-2 0 - 5 /HPF 12/16/2024 9:38 PM EDT [facility] Comment:Epithelial cell coun t may include squamous, transitional and renal tubular epithelial cells Urine Hyaline Casts 0-2 0-2 Negative /LPF 12/16/2024 9:38 PM EDT [facility] Comment: Total cast count will include hyaline casts and may include pathologic casts. See report below for pathologic casts identification, if present. Urine Bacteria Negative Negative /HPF 12/16/2024 9:38 PM T [facility] Urine URINE SPECIMEN OBTAINED BY CLEAN CATCH PROCEDURE / Unknown 12/16/2024 9:18 PM EDT 12/16/2024 9:24 PM EDT us Ana Cristina Palomba MD LAB URINE ORDERABLES Final Re sult Performing Organization Address City/[facility]/ZIP Co de Phone Number [facility] [address] [place] [address] * Urine Mathur Tube (12/16/2024 5:00 PM EDT) Urine URINE SPECIMEN OBTAINED BY CLEAN CATCH PROCEDURE / Unknown 12/16/2024 5:00 PM EDT 12/16/2024 5:04 PM EDT Ana Cristina Miranda MD LAB URINE ORDERABLES Final Re sult Performing Organization Address [facility] Co de Phone Number [facility] [address] [place] [address] * (ABNORMAL) Urinalysis With Microscopic (12/16/2024 5:00 PM EDT) Urine Color Yellow 12/16/2024 5:26 PM EDT [facility] Urine Clarity Clear Clear 12/16/2024 5:26 PM EDT [facility] Urine Glucose Negative Negative mg/dL 12/16/2024 5:26 PM EDT [facility] Urine Bilirubin Negative Negative 5:26 PM EDT [facility] Urine Ketones >=80(CRITIC AL) Negative mg/dL 12/16/2024 5:26 PM EDT [facility] Comment:Critical call waived per policy Urine Specific [place] 1.013 1.005 - 1.030 12/16/2024 5:26 PM EDT [facility] Urine Blood Negative Negative 12/16/2024 5:26 PM EDT [facility] U pH 6.0 5.0 - 8.0 12/16/2024 5:26 PM EDT [facility] Urine Protein Negative Negative mg/dL 12/16/2024 5:26 PM EDT [facility] Urine Urobilinogen 1.0 <2.0 mg/dL 12/16/2024 5:26 PM EDT [facility] Urine Nitrite Negative Negative 12/16/2024 5:26 PM EDT [facility] Urine Leukocyte Esterase Negative Negative 12/16/2024 5:26 PM EDT [facility] Urine RBC 0-2 0-2 Negative /HPF 12/16/2024 5:26 PM EDT [facility] Urine WBC 0-5 0-5 Negative /HPF 12/16/2024 5:26 PM EDT [facility] Urine Squamous Epithelial Cells 0-2 0 - 5 /HPF 12/16/2024 5:26 PM EDT [facility] Comment:Epithelial cell coun t may include squamous, transitional and renal tubular epithelial cells Urine Hyaline Casts 0-2 0-2 Negative /LPF 12/16/2024 5:26 PM EDT [facility] Comment: Total cast count will include hyaline casts and may include pathologic casts. See report below for pathologic casts identification, if present. Urine Bacteria Negative Negative /HPF 12/16/2024 5:26 PM EDT [facility] Urine URINE SPECIMEN OBTAINED BY CLEAN CATCH PROCEDURE / Unknown 12/16/2024 5:00 PM EDT 12/16/2024 5:04 PM EDT us Ana Cristina Miranda MD LAB URINE ORDERABLES Final Re sult [facility] [address] [place] [address] * Electrocardiogram, Complete (12/16/2024 4:07 PM EDT) 12/16/2024 4:07 PM EDT 12/16/2024 5:36 PM EDT Narrative [facility] - 12/16/2024 5:36 PM EDT Ventricular Rate 73 BPM Atrial Rate 73 BPM P-R Interval 176 ms QRS Duration 88 ms Q-T Interval 400 ms QTC Calculation(Bazett) 440 ms Calculated P Gilman 29 degrees Calculated R Gilman 18 degrees Calculated T Gilman 2 degrees Diagnosis Normal sinus rhythm Normal ECG No previous ECGs available Confirmed by Fernando Crockett ([id number]) on 12/16/2024 5:36:07 PM Procedure Note Fernando Crockett MD - 12/16/2024 Ventricular Rate 73 BPM Atrial Rate 73 BPM P-R Interval 176 ms QRS Duration 88 ms Q-T Interval 400 ms QTC Calculation(Bazett) 440 ms Calculated P Gil[place] 29 degrees Calculated R Gilman 18 degrees Calculated T Gilman 2 degrees Diagnosis Normal sinus rhythm Normal ECG No previous ECGs available Confirmed by Fernando Crockett ([id number]) on 12/16/2024 5:36:07 PM us Ana Cristina Miranda MD ECG ORDERABLES Final Result Performing Organization Address City/[facility]/ZIP Co de Phone Number [facility] * (ABNORMAL) Beta Human Chorionic Gonadotropin (hCG) Quantitative (12/16/2024 3:31 PM EDT) Pathologist [facility] Human Chorionic Gonadotropin Quantitative 64,297(H) <=5 mIU/mL 12/16/2024 4:34 PM EDT [facility] Blood VENOUS BLOOD SPECIMEN / Unknown Collection / Unknown 12/16/2024 3:31 PM EDT 12/16/2024 3:35 PM EDT us Ana Cristina Miranda MD LAB BLOOD ORDERABLES Final Re sult [facility] [address] [place] [address] * (ABNORMAL) Basic Metabolic Panel (BMP) (12/16/2024 3:31 PM EDT) [facility] Sodium 134(L) 135 - 145 mmol/L 12/16/2024 4:16 PM EDT [facility] Potassium 3.8 3.5 - 5.2 mmol/L 12/16/2024 4:16 PM EDT [facility] Chloride 106 98 - 111 mmol/L 12/16/2024 4:16 PM EDT [facility] Bicarbonate 19(L) 20 - 29 mmol/L 12/16/2024 4:16 PM EDT [facility] Anion Gap 9 5 - 17 mmol/L 12/16/2024 4:16 PM EDT [facility] Glucose 89 70 - 99 mg/dL 12/16/2024 4:16 PM EDT [facility] Blood Urea Nitrogen (BUN) 5(L) 7 - 25 mg/dL 12/16/2024 4:16 PM EDT [facility] Creatinine 0.53 0.50 - 1.10 mg/dL 12/16/2024 4:16 PM EDT [facility] eGFR 133 >60 mL/min/1. 73 m2 12/16/2024 4:16 PM EDT [facility] Comment: Calculation based on the Chronic Kidney Disease Epidemiology Collaboration (CKD- EPI) equation refit without adjustment for race. Glomerular Filtration Rate is estimated from serum creatinine, age and gender using the CKD-EPI equation. CKD-EPI eGFR is best used for detection of chronic kidney disease in clinically Stable patients. DO NOT USE VALUES FROM THIS EQUATION FOR DRUG DOSING. It has not yet been validated for drug dosing or for patients with rapidly changing clinical situations (inpatient care). Calcium 8.6 8.5 - 10.5 mg/dL 12/16/2024 4:16 PM EDT [facility] Blood VENOUS BLOOD SPECIMEN / Unknown Collection / Unknown 12/16/2024 3:31 PM EDT 12/16/2024 3:35 PM EDT Ana Cristina Miranda MD LAB BLOOD ORDERABLES Final Re sult [facility] [address] [place] [address] * (ABNORMAL) Complete Blood Count w/Differential (12/16/2024 3:31 PM EDT) White Blood Cell 10.8(H) 3.3 - 10.7 x10*9/L 12/16/2024 3:41 PM EDT [facility] Red Blood Cell 4.46 3.87 - 5.08 x10*12/L 12/16/2024 3:41 PM EDT [facility] Hemoglobin 11.1(L) 12.1 - 15.0 g/dL 12/16/2024 3:41 PM EDT [facility] Hematocrit 34.3(L) 35.4 - 44.2 % 12/16/2024 3:41 PM EDT [facility] Mean Cell Volume 76.9(L) 79.5 - 100.4 fL 12/16/2024 3:41 PM EDT [facility] Mean Cell Hemoglobin 24.9(L) 27.5 - 33.4 pg 12/16/2024 3:41 PM EDT [facility] Mean Cell Hemoglobin Concentration 32.4 31.5 - 35.4 g/dL 12/16/2024 3:41 PM EDT [facility] Red Cell Distribution Width 14.3 11.5 - 15.4 % 12/16/2024 3:41 PM EDT [facility] Platelet 255 150 - 400 x10*9/L 12/16/2024 3:41 PM EDT [facility] Mean Platelet Volume 10.6 8.0 - 12.0 fL 12/16/2024 3:41 PM EDT [facility] Neutrophil Automated Absolute 8.47(H) 1.55 - 7.24 x10*9/L 12/16/2024 3:41 PM EDT [facility] Lymphocyte Automated Absolute 1.82 1.05 - 4.04 x10*9/L 12/16/2024 3:41 PM EDT [facility] Monocyte Automated Absolute 0.42 0.00 - 0.84 x10*9/L 12/16/2024 3:41 PM EDT [facility] Eosinophil Automated Absolute 0.04 0.00 - 0.54 x10*9/L 12/16/2024 3:41 PM EDT [facility] Basophil Automated Absolute 0.02 0.00 - 0.14 x10*9/L 12/16/2024 3:41 PM EDT [facility] Immature Granulocyte Automated Absolute 0.06(H) 0.00 - 0.03 x10*9/L 12/16/2024 3:41 PM EDT [facility] Immature Granulocyte Automated 0.6 0.0 - 1.0 % 12/16/2024 3:41 PM EDT [facility] NUCLEATED RED BLOOD CELLS AUTOMATED 0.0 <=0.0 % 12/16/2024 3:41 PM EDT [facility] Blood VENOUS BLOOD SPECIMEN / Unknown Collection / Unknown 12/16/2024 3:31 PM EDT 12/16/2024 3:34 PM EDT us Ana Cristina Miranda MD LAB BLOOD ORDERABLES Final Re sult [facility] [address] [place], [place] [id number] documented in this encounter Visit Diagnoses Diagnosis Hyperemesis gravidarum ([facility])- Primary Mild hyperemesis gravidarum, unspecified as to episode of care documented in this encounter Administered Medications Inactive Administered Medications - up to 3 most recent administrations Medication Order MAR Action Action Date Dose Rate Site xlnudslqjn-krcewuhifaeuw-scq feine (Fioricet,Esgic) 50-325-40 mg per tablet 2 tablet 2 tablet, Oral, Once, On 12/16/24 at 1645, For 1 dose, Maximum dose of acetaminophen is 4000 mg from all sources in 24 hours. Given 12/16/2024 4:29 PM EDT 2 tablets ondansetron (ZOFRAN) injection 4 mg 4 mg (0.0533 mg/kg), Intravenous, Once, On 12/16/24 at 1600, For 1 dose Given 12/16/2024 3:45 PM EDT 4 mg ondansetron (ZOFRAN) injection 4 mg 4 mg (0.0533 mg/kg), Intravenous, Every 8 hours PRN, Nausea/Vomiting, Starting on 12/16/24 at 2152 Given 12/16/2024 10:59 PM EDT 4 mg promethazine (PHENERGAN) 25 mg in dextrose 5% 51 mL IVPB 25 mg (0.333 mg/kg), Intravenous, at 204 mL/hr, Administer over 15 Minutes, Once, On 12/16/24 at 1630, For 1 dose 12/16/2024 4:29 PM EDT 25 mg 204 mL/hr promethazine (PHENERGAN) 25 mg in dextrose 5% 51 mL IVPB 25 mg (0.333 mg/kg), Intravenous, at 204 mL/hr, Administer over 15 Minutes, Every 6 hours PRN, Nausea/Vomiting (Use 2nd), Starting on 12/16/24 at 2151 New Bag 12/17/2024 4:27 AM EDT 25 mg 204 mL/hr sodium chloride 0.9% (NS) infusion 125 mL/hr, Intravenous, Continuous, Starting on 12/16/24 at 1815 New Bag 12/17/2024 4:27 AM EDT 125 mL/hr 125 mL/hr New 12/16/2024 5:53 PM EDT 125 mL/hr 125 mL/hr sodium chloride 0.9% bolus injection 2,000 mL 2,000 mL (26.7 mL/kg), Intravenous, at 2,000 mL/hr, Administer over 60 Minutes, Once, On 12/16/24 at 1600, For 1 dose New 12/16/2024 3:46 PM EDT 2,000 mL 2000 mL/hr documented in this encounter Active and Recently Administered Medications Times are shown in EDT. Scheduled Medication Order 12/15/2024 12/16/2024 12/17/2024 jiqkzfjqvg-kaddlipclndwk-jpxtseku (Fioricet,Esgic) 50-325-40 mg per tablet 2 tablet (COMPLETED) 2 tablet, Oral, Once, On 12/16/24 at 1645, For 1 dose, Maximum dose of acetaminophen is 4000 mg from all sources in 24 hours. 1629 (Given - Provider: Rosanne Hubbard RN) ondansetron (ZOFRAN) injection 4 mg (COMPLETED) 4 mg (0.0533 mg/kg), Intravenous, Once, On 12/16/24 at 1600, For 1 dose 1545 (Given - Provider: Rosanne Hubbard RN) promethazine (PHENERGAN) 25 mg in dextrose 5% 51 mL IVPB (COMPLETED) 25 mg (0.333 mg/kg), Intravenous, at 204 mL/hr, Administer over 15 Minutes, Once, On 12/16/24 at 1630, For 1 dose 1629 (New Bag - Provider: Rosanne Hubbard RN)1700 (Stopped - Provider: Rosanne Hubbard RN) sodium chloride 0.9% bolus injection 2,000 mL (COMPLETED) 2,000 mL (26.7 mL/kg), Intravenous, at 2,000 mL/hr, Administer over 60 Minutes, Once, On 12/16/24 at 1600, For 1 dose 1546 (New Bag - Provider: Rosanne Hubbard RN)1700 (Stopped - Provider: Rosanne Hubbard RN) Continuous Medication Order 12/15/2024 12/16/2024 12/17/2024 sodium chloride 0.9% (NS) infusion 125 mL/hr, Intravenous, Continuous, Starting on 12/16/24 at 1815 1753 (New Bag - Provider: Rosanne Hubbard RN) 0427 (New Bag - Provider: Lore Puentes - Comment: Scanner not working)1030 (Stopped - Provider: Bruce Kelley RN) PRN Medication Order 12/15/2024 12/16/2024 12/17/2024 ondansetron (ZOFRAN) injection 4 mg 4 mg (0.0533 mg/kg), Intravenous, Every 8 hours PRN, Nausea/Vomiting, Starting on 6/7/25 at 2152 2259 (Given - Provider: Hernando Perez) promethazine (PHENERGAN) 25 mg in dextrose 5% 51 mL IVPB 25 mg (0.333 mg/kg), Intravenous, at 204 mL/hr, Administer over 15 Minutes, Every 6 hours PRN, Nausea/Vomiting (Use 2nd), Starting on 12/16/24 at 2151 0427 (New Bag - Provider: Lore Puentes - Comment: Scanner not working)0637 (Stopped - Provider: Lore Puentes) documented in this encounter Care Teams Order Editor Relationship Specialty Start Date End Date Evie Madrid DO [address] [place] [address] PCP - General Family Medicine 12/16/24 documented as of this encounter
--- OUTSIDE RECORDS SUMMARY | 2024-12-27 10:56 | XMS_ITS | Referral Summary ---
Author Organization [employer] ([facility] ore 01/30/2024) ([employer], and [employer]) Address [address] [place] [address] Care Team Providers Care Lock Setter Name Role Phone Bridgett Rai MD Primary Care Pro vider Allergies Active Allergy Reactions Criticality Noted Date Comments Iodine Other High 06/23/2016 When applied to skin caused blisters( betadine solution) Wound Dressing Adhesive Hives,Rash/Itching High 07/06/2016 Medications EPINEPHrine 0.3 MG/0.3ML INJ Solution Auto-injector 3 Active ondansetron (ZOFRAN) 4 MG PO TABLET DISPERSIBLE take 1 Tablet by mouth every 6 hours as needed for FOR NAUSEA/VOMITI NG. 15 Tablet 3 Active ibuprofen (MOTRIN) 600 MG PO Tab take 1 Tablet by mouth every 8 hours as needed for FOR MODERATE PAIN. 20 Tablet 3 Active famotidine (Pepcid) 20 MG PO Tab take 1 Tablet by mouth twice daily. 30 Tablet 3 Active escitalopram (LEXAPRO) 10 MG PO Tab take 1 Tablet by mouth once daily. 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 Anxiety 02/18/2023 Menorrhagia with regular cycle 02/18/2023 Iron deficiency anemia due to chronic blood loss 02/18/2023 Resolved Problems Problem Noted Date Diagnosed Date Resolved Date Bankart lesion of left shoulder 06/24/2017 02/18/2023 Ankle sprain 11/11/2012 02/18/2023 Immunizations Immunization Administration Dates Next Due DTaP (Infanrix) 25-58-10 04/13/2002,08/13,1998,1997,1998 HPV, 9 Valent, Recombinant 01/22/2023 Hep B (Unspecified, Historical) 03/26/1999,11/05,1998 Hib (Unspecified, Historical) 03/26/1999 ,1998,1998,1997 IPV (Polio) 04/13/2002,1998,1998 Influenza Vaccine, MDCK, Quadrivalent, Pf (Flucelvax) 07/07/2017 MMR (Measles, Mumps, Rubella) 04/13/2002, 999 OPV (Polio Historical) 03/26/1999 Social History Tobacco Use Types Packs/Day Years Used Date Smoking Tobacco: Never Smokeless Tobacco: Never Tobacco Cessation:Counseling Given: Not Answered Alcohol Use Standard Drinks/Week Comments Yes 0 (1 standard drink = 0.6 oz pur e alcohol) 2 drinks per month Humiliation, Afraid, Rape, and Kick questionnair e Answer Date Recorded Within the last year, have y ou been afraid of your partner or ex-partner? No 12/30/2022 Within the last year, have y ou been humiliated or emotionally abused in other ways by your partner or ex-partner? No Within the last year, have y ou been kicked, hit, slapped, or otherwise physically hurt by your partner or ex-partner? No 12/30/2022 Within the last year, have y ou been raped or forced to have any kind of sexual activity by your partner or ex-partner? No 12/30/2022 Social Connection and Isolat ion Panel [NHANES] Answer Date Recorded In a typical week, how many times do you talk on the phone with family, friends, or neighbors? More than three times a week 12/30/2022 How often do you get togethe r with friends or relatives? More than three times a week 12/30/2022 How often do you attend chur ch or rastafarian services? Never 12/30/2022 Do you belong to any clubs o r organizations such as buddhist groups, unions, fraternal or athletic groups, or school groups? No 12/30/2022 How often do you attend meet ings of the clubs or organizations you belong to? Never 12/30/2022 Are you , , di vorced, , never , or living with a partner? 12/30/2022 AUDIT-C Answer Date Recorded Q1: How often do you have a drink containing alc ohol? Monthly or less 12/30/2022 Q2: How many drinks containi ng alcohol do you have on a typical day when you are drinking? 1 or 2 12/30/2022 Q3: How often do you have si x or more drinks on one occasion? Never 12/30/2022 Overall Financial Resource Strain (CARDIA) Answe r Date Recorded How hard is it for you to pa y for the very basics like food, housing, medical care, and heating? Hard 12/30/2022 PHQ-2 Answer Date Recorded Patient Health Questionnaire-2 Score 2 02/19/2023 [facility] - Occupational Stress Questionnaire Answer Date Recorded Do you feel stress - tense, restless, nervous, or anxious, or unable to sleep at night because your mind is troubled all the time - these days? Very much 12/30/2022 Exercise Vital Sign Answer Date Recorde d On average, how many days pe r week do you engage in moderate to strenuous exercise (like a brisk walk)? 7 days 12/30/2022 On average, how many minutes do you engage in exercise at this level? 60 min 12/30/2022 Hunger Vital Sign Answer Date Recorded Within the past 12 months, y ou worried that your food would run out before you got the money to buy more. Sometimes true Within the past 12 months, t he food you bought just didn't last and you didn't have money to get more. Sometimes true PRAPARE - Transportation Answer Date Re corded In the past 12 months, has l ack of transportation kept you from medical appointments or from getting medications? No 12/11 In the past 12 months, has l ack of transportation kept you from meetings, work, or from getting things needed for daily living? No 12/30/2022 Housing Stability Vital Sign Answer Braden e Recorded In the last 12 months, was t here a time when you were not able to pay the mortgage or rent on time? Yes 12/30/2022 In the last 12 months, how many places have you lived? 2 12/30/2022 In the last 12 months, was t here a time when you did not have a steady place to sleep or slept in a mcc (including now)? No 12/30/2022 Comments Unknown Sex and Gender Information Value Date Recorded Sex Assigned at Female 12/04/2022 2:28 AM EDT Legal Sex Female 4:27 PM EST Gender Identity Female 12/04/2022 2:28 AM EDT Sexual Orientation Straight 12/04/2022 2: 28 AM EDT Last Filed Vital Signs Vital Sign Reading Time Taken Comments Blood Pressure 114/81 04/09/2023 3:16 PM EDT Pulse 77 04/09/2023 3:16 PM EDT Temperature 36.2 C (97.1 F) 04/09/2023 3:16 PM EDT Respiratory Rate 16 04/09/2023 3:16 PM EDT Oxygen Saturation 99% 04/02/2023 3:19 PM EDT Inhaled Oxygen Concentration - - Weight 69.4 kg (153 lb) 04/09/2023 3:16 PM EDT Height 157.5 cm (5' 2 ) 04/09/2023 3:16 PM EDT Body Mass Index 27.98 04/09/2023 3:16 PM EDT Plan of Treatment Not on file Medical Devices Implanted Type Area Golf Superintendent Device Identifier Shelf Expiration Date Model / Serial / Lot Brittany Suarez, 2.9x12.5, [id number] Implanted:Qty: 1 on 12/19/2015 by Ravi Nayak MD at [facility] Right: Shoulder 08/11/2020 [id number] / / [id number] Brittany Suarez, 2.9x12.5, [id number] Implanted:Qty: 1 on 12/19/2015 by Ravi Nayak MD at [facility] Right: Shoulder 08/11/2020 [id number] / / [id number] Pushlock,Short, 2.9x12.5, [id number] Implanted:Qty: 1 on 06/25/2016 by Ravi Nayak MD at [facility] Left: Shoulder 07/26/2020 [id number] / N/A / [id number] Pushlock,Short, 2.9x12.5, [id number] Implanted:Qty: 1 on 06/25/2016 by Ravi Nayak MD at [facility] Left: Shoulder 02/23/2021 [id number] / N/A / [id number] Pushlock,Short, 2.9x12.5, [id number] Implanted:Qty: 2 on 06/24/2017 by Ravi Nayak MD at [facility] Left: Shoulder 02/08/2022 [id number] / / [id number] Procedures Procedure Name Priority Date/Time Associated Diagnosis Comments HIV 1/2 TESTING ALGORITHM Routine 01/26/2023 9:40 AM EDT Screening for HIV (human immunodeficiency virus) HEPATITIS C VIRUS (HCV) ANTIBODY Routine 01/26/2023 9:40 AM EDT Need for hepatitis C screening test from Last 3 Months or Most Recently Relevant to Health Maintenance Results * Hepatitis C Virus (HCV) Antibody (01/26/2023 9:40 AM EDT) Hepatitis C Virus Antibody Nonreactive Nonreactive [id number] 01/26/2023 12:00 PM EDT [facility] (CLIA#: [id number]) Comment:No further action re quired unless recent infection is suspected, or other evidence exists to indicate HCV infection. If recent exposure is suspected, recommend HCV RNA quantitation by PCR. Blood VENOUS BLOOD SPECIMEN / Unknown Venipuncture / Unknown 01/26/2023 9:40 AM EDT 01/26/2023 9:44 AM EDT us Andressa Coon MD LAB BLOOD ORDERABLES Final Result [facility] [place] (CLIA#: [id number]) [address] [place] [address] from Last 3 Months or Most Recently Relevant to Health Maintenance Care Teams Lock Setter Relationship Specialty Start Date [place]idgett Rai [place] [id number] [place] [id number] PCP - General Family Medicine 12/29/23
--- OUTSIDE RECORDS SUMMARY | 2024-12-27 10:56 | XMS_ITS | Clinical Summary ---
Author Organization [employer] ([facility] [place] ore 01/30/2024) ([employer], [employer]) Address [address] [place] [address] Care Team Providers Care Help Desk Intern Name Role Phone Bridgett Rai MD Primary [...] Rubella) 04/13/2002, 999 OPV (Polio Historical) 03/26/1999 Family History Medical History Relation Name Comments Hypertension Father Cancer - Cervical Maternal Grandmother Bipolar disorder Mother Bipolar disorder Sister Gout Sister Kayley's thyroiditis Sister Relation Name Status Comments Father Alive Maternal Grandmother Mother Alive Sister Alive Social History Tobacco Use Types Packs/Day Years [...] often do you attend chur ch or hinduism services? Never 12/30/2022 Do you belong to any clubs o r organizations such as anabaptist groups, unions, fraternal or athletic groups, or [...] Recorded Patient Health Questionnaire-2 Score 2 [facility] Answer Date Recorded [...] place to sleep or slept in a fci (including now)? No 12/30/2022 Comments Unknown Sex [...] 04/09/2023 3:16 PM EDT Plan of Treatment Health Maintenance Due Date Last Done Comments VACCINE: TETANUS,DIPHTHERIA BOOSTER (TD BOOSTER) EVERY 10 YEARS 2017 VACCINE: TETANUS,DIPHTHERIA,PERTUSSI S (TDAP) FIRST DOSE ADULT 2017 Pap Smear 2019 Vaccines: HPV (2 - 3-dose series) 02/19/2023 01/22/2023 HEALTH MAINTENANCE EXAM (ADULT) 01/23/2024 01/22/2023 VACCINE: INFLUENZA (#1) 2024 07/07/2017 SCREENING: DEPRESSION 02/20/2024 02/19/2023, 023 VACCINE: COVID-19 ( season) 2024 VACCINE: HEPATITIS B Completed 03/26/1999, 1998, 1998 Vaccines: HIB Completed 03/26/1999, 10/11, 1998, Additional history exists Vaccines: IPV Completed 04/13/2002, 03/12, 1998, Additional history exists Vaccines: MMR Discontinued 04/13/2002, 03/26/1999 SCREENING: HEPATITIS C Completed 01/26/2023 SCREENING:HIV Completed 01/26/2023, 01/26/2023 Pneumococcal Vaccine: Pediatrics (0 to 5 Years) and At-Risk Patients (6 to 64 Years) Aged Out No longer eligible based on patient's age to complete this topic VACCINE: HEPATITIS A Aged Out No long er eligible based on patient's age to complete this topic Vaccines: Meningococcal B Aged Out No longer eligible based on patient's age to complete this topic Vaccines: Meningococcal Aged Out No l onger eligible based on patient's age to complete this topic Vaccines: Rotavirus Aged Out No longe r eligible based on patient's age to complete this topic Medical Devices Implanted Type Area Correspondence School Teacher Device Identifier Shelf Expiration Date Model / Serial / Lot Brittany Suarez, 2.9x12.5, [id number] Implanted:Qty: 1 on 12/19/2015 by Ravi Nayak MD at [facility] Right: Shoulder 08/11/2020 [id number] / / [id number] Brittany Suarez, 2.9x12.5, [id number] Implanted:Qty: 1 on 12/19/2015 by Ravi Nayak MD at [facility] Right: Shoulder 08/11/2020 [id number] / / [id number] Brittany Suarez, 2.9x12.5, [id number] Implanted:Qty: 1 on 06/25/2016 by Ravi Nayak MD at [facility] Left: Shoulder 07/26/2020 [id number] / N/A / [id number] Brittany Suarez, 2.9x12.5, [id number] Implanted:Qty: 1 on 06/25/2016 by Ravi Nayak MD at [facility] Left: Shoulder 02/23/2021 [id number] / N/A / [id number] ErickShort, 2.9x12.5, [id number] Implanted:Qty: 2 on 06/24/2017 by Ravi Nayak MD at [facility] Left: Shoulder 02/08/2022 [id number] / / [id number] Procedures Procedure Name Priority Date/Time Associated Diagnosis [...] EDT) Hepatitis C Virus Antibody Nonreactive Nonreactive [id number] 01/26/2023 12:00 PM EDT [facility] (CLIA#: [id number]) Comment:No further action re quired unless recent infection is suspected, or other evidence exists to indicate HCV infection. If recent exposure is suspected, recommend HCV RNA quantitation by PCR. Blood VENOUS BLOOD SPECIMEN / Unknown Venipuncture / Unknown 01/26/2023 9:40 AM EDT 01/26/2023 9:44 AM EDT us Andressa Coon MD LAB BLOOD ORDERABLES Final Result [facility] (CLIA#: [id number]) [address] [place] [address] from Last 3 Months or Most Recently Relevant to Health Maintenance Care Teams Help Desk Intern Relationship Specialty Start [place] [address] [place] [address] PCP - General Family Medicine 12/29/23
--- OUTSIDE RECORDS SUMMARY | 2024-12-27 10:59 | XMS_ITS | Continuity of Care Document ---
Author Organization [facility] Address [address] [place] [address] Care Team Providers Care Mica Builder Name Role Phone ERASMO CARROLLEEN Primary Care Provider Assessment Encounter Date Assessment Date Assessment LastModified by Organization Details LastModified Time 12/15/2024 12/15/2024 See flowsheet RTO 2wks OBV Not available 12/15/2024 15:25:26 Plan of Treatment Reminders Order Date Submit Date Provider Last Modified By Organization Details Last Modified Time Details Appointments OB ESTABLISH ED 2024 01:30P M NATALIE DOMÍNGUEZ CNM Not available Not available Not available Lab None recorded. Referral neurologi st referral 2024 025 [facility], [address], [address], [place], [address], 12/15/2024 16:10:41 Procedures None recorded. Surgeries None recorded. Imaging None recorded. Medication Orders None recorded. Patient TargetsNo targets recorded. Patient InstructionsNo instructions recorded. Reason for Referral Neurologist Referral for Acu te migraine Referring Physician: Natalie Domínguez, Certified Nurse Pipeline Controller, Encounter Date: 12/15/2024 Problems Name Problem SNOMED Code Status Onset Date Resolution Date Notes Provider Name and Address Organization Details Recorded Time Pregnanc y 22672403 Completed 202303/29/2024 NATALIE DOMÍNGUEZ CNM [address] [facility], [place], [address], [facility] 05/02/202 5 17:02:08 History of anxiety state 789089091 Active Court with ex regardin g prior domestic issues PALOMO VIVAR CNM [address], [place], [address], [facility] 4 13:57:17 History of anxiety state 021175591 Completed Court with ex regardin g prior domestic issues [address], [place], [address], [facility] 4 13:57:17 Migraine 14270632 Completed Cyclic PALOMO VIVAR CNM [address], [place], [address], [facility] 4 13:57:17 Past pregnanc y history of section 222812208 Completed Op report reviewed -TOLAC ok [address], [place], [address], [facility] 4 14:57:49 Fatigue 36396365 Active 2023 PALOMO VIVAR CNM [address], [place], [address], [facility] 4 13:45:42 Diastasi s recti 25341349 Completed Plan PT PP PALOMO VIVAR CNM [address], [place], [address], [facility] 4 13:57:17 Dysuria 59976889 Active 2023 PALOMO VIVAR CNM [address], [place], [address], [facility] 4 13:55:20 Bacteria l vaginosi s in pregnanc y 87924975844 9109 Active 2023 PALOMO VIVAR CNM [address], [place], [address], [place] [facility] 4 15:33:40 Pregnanc y 15634232 Active 2024 NATALIE DOMÍNGUEZ CNM [address], [place], [address], [place] [facility] 5 17:02:08 Past pregnanc y history of recurren t miscarri age Active 2024 x5, pt requesti ng vaginal progeste kelly NATALIE DOMÍNGUEZ CNM [address], [place], [address], [place] [facility] 5 17:04:23 Past pregnanc y history of section 212472166 Active 2024 LTCS x2, RLTCS @ 39 weeks NATALIE DOMÍNGUEZ CNM [address], [place], [address], [place] [facility] 5 17:05:20 Migraine 42000661 Active 2024 Neurolog y consult given NATALIE DOMÍNGUEZ CNM [address], [place], [address], [place] [facility] 5 16:00:55 Problem Notes None recorded. Procedures Surgical History Date Name Laterality Status Provider Name and Address Organization Details Recorded Time 5 [place] First Trimester OB Single completed Radha Polo [place] [facility] 11/17/2024 14:11:12 4 SVC Time WEOG completed [place]ianna [place]ieves [place] [facility] 03/31/2024 16:15:02 4 delivery completed P[place]ush Trejo [place] [facility] 03/29/2024 10:05:23 4 [place] OB Complete / Structural Survey completed Carolina Bradshaw [place] [facility] 10/20/2023 09:01:43 4 [place] First Trimester OB Single completed Annette Fabian [place] [facility] 08/23/2023 12:20:47 2 Colposcopy completed Donald Angel [place] [facility] 08/09/2023 15:06:16 1 section completed Donald Angel [facility] 08/09/2023 15:04:52 1 Date of Last Pap Smear completed Donald Angel [facility] 08/09/2023 14:50:03 5 [facility] 15:05:23 [facility] 15:05:49 Imaging Results None recorded. Procedure Notes None recorded. Medical Equipment None Reported. Allergies Allergen ID Allergen Name Allergen Category Reaction Reaction Severity Criticality Documentation Date Start Date Code Code System Note Provider Name and Address Organization Details Recorded Time 16641 adhesive tape environme nt,medica tion other Not available high 08/09/2023 84224 UNK Skin peeli ng. Redne ss and blist ers. VIVIAN CHAN, CN [address] , [place], [address], [facility] 4 15:18:10 03019 iodine medicatio n other Not available high 11/10/20242015 5933 RxNorm When appli ed to skin cause d blist ers( betad ine solut ion) Not Available norman - External Data Service - prod 5 14:31:38 Medications Name Sig Start Date Stop Date Status Note LastModified by Organization Details LastModified Time Progesteron e suppositori es 200mg vaginally insert 1 200mg progester one supposito ry PV @ HS 2024 active Not Available Not Available Not Avai lable dicloxacill in 500 mg capsule Take 1 capsule every 6 hours by oral route for 10 days. 04/20 completed Not Available Not Available Not Available ibuprofen 800 mg tablet 03/31 completed Not Available Not Available Not Available metronidazo le 0.75 % (37.5 mg/5 gram) vaginal gel Insert 1 applicato rful every day by vaginal route at bedtime. 03/31 completed Not Available Not Available Not Available prednisone 20 mg tablet TAKE 2 TABLETS BY MOUTH EVERY DAY 08/09 completed Not Available Not Available Not Available famotidine 20 mg tablet Take 1 tablet twice a day by oral route before meal(s). 03/31 completed Not Available Not Available Not Available cyanocobala min (vit B-12) 1,000 mcg/mL injection solution Inject 1 mL every month by subcutane ous route. 03/31 completed Not Available Not Available Not Available promethazin e 25 mg tablet TAKE 1 TABLET BY MOUTH EVERY 8 HOURS NEEDED FOR NAUSEA AND VOMITING active Not Available Not Available No t Available docusate sodium 100 mg capsule 03/31 completed Not Available Not Available Not Available Banophen 25 mg capsule TAKE 1 TO 2 CAPSULES BY MOUTH EVERY 6 HOURS NEEDED FOR ITCHING OR RASH 08/09 completed Not Available Not Available Not Available ondansetron 4 mg disintegrat ing tablet Place 1 tablet every 6 hours by transling ual route as needed, for vomiting. 2024 active Not Available Not Available Not Avai lable oxycodone 5 mg tablet 03/31 completed Not Available Not Available Not Available iron active Not Available Not Availa ble Not Available 03/31 completed Not Available Not Available Not Available FeroSul 325 mg (65 mg iron) tablet 03/31 completed Not Available Not Available Not Available Probiotic 03/31 completed Not Available Not Available Not Available Vitamin D3 50 mcg (2,000 unit) capsule Take 1 capsule every day by oral route for 30 days. 2024 active Not Available Not Available Not Avai lable Diclegis 10 mg-10 mg tablet,sai yed release Take 2 tablets every day by oral route, for nausea. 03/31 completed Not Available Not Available Not Available Fioricet 50 mg-300 mg-40 mg capsule Take 1 capsule every 4 hours by oral route. 2024 active Not Available Not Available Not Avai lable magnesium glycinate,m agnesium oxide 120 mg capsule Take 3 capsules every 8 hours by oral route at bedtime, for headache preventio n.. 03/31 completed Not Available Not Available Not Available Vitals Date Recorded Body weight Systolic blood pressure Diastolic blood pressure Provider Name and Address Organization Details Last Updated DateTime 12/15/2024 65630.8773 97 g 124 mm[Hg] 72 mm[Hg] Caron Enrique [facility] 12/15/2024 14:45:59 Social History Question Answer Notes LastModified by Organizat ion Details LastModified Time Tobacco Smoking Status Never Smoker Donald Angel jabari [facility] 08/09/2023 15:00:25 Do You Have An Advance Directive? No Information not available 08/09/2023 Are You Blind Or Do You Have Difficulty Seeing? No Information not available 08/09/2023 Is Blood Transfusion Acceptable In An Emergency? Yes Information not available 08/09/2023 What Is Your Level Of Caffeine Consumption? Moderate Information not available 08/09/2023 Are You Deaf Or Do You Have Serious Difficulty Hearing? No Information not available 08/09/2023 What Type Of Diet Are You Following? REGULAR Information not available 08/09/2023 Which Illicit Or Recreational Drugs Have You Used? MJ Last Use 01/2023. [email or web address] Information not available 08/09/2023 What Is The Highest Grade Or Level Of School You Have Completed Or The Highest Degree You Have Received? [id number] Information not available 08/09/2023 Have There Been Any Changes To Your Family Or Social Situation? No Lives In [place] Information not available 08/09/2023 Are There Any Guns Present In Your Home? Yes Information not available 08/09/2023 Last Dental Exam 2020 Informat ion not available 08/09/2023 Ethnicity Information no t available 08/09/2023 How Many Children Do You Have? 1 Information not available 08/09/2023 Do You Have Any Pets? Yes Information not available 08/09/2023 What Is Your Relationship Status? Information not available 08/09/2023 Do You Use Your Seat Belt Or Car Seat Routinely? Yes Information not available 08/09/2023 Are You Sexually Active? Yes Information not available 08/09/2023 Do You Have Smoke And Carbon Monoxide Detectors In Your Home? Yes Information not available 08/09/2023 Are You Passively Exposed To Smoke? No Information not available 08/09/2023 Do You Use Sunscreen Routinely? Yes Information not available 08/09/2023 Have You Used IV Drugs? No Information not available 08/09/2023 Do You Have Difficulty Walking Or Climbing Stairs? No Information not available 08/09/2023 Sex: Female Functional Status Question Answer Note LastModified by Organizat ion Details LastModified Time Do you use any illicit or recreational drugs? Yes Information not available 08/09/2023 What is your level of alcohol consumption? None Information not available 08/09/2023 Are you currently employed? Yes Information not available 08/09/2023 Do you have difficulty doing errands alone? No Information not available 08/09/2023 What is your occupation? Other [id number] Information not available 11/17/2024 Do you have difficulty dressing or bathing? No Information not available 08/09/2023 Mental Status Question Answer Note LastModified by Organizat ion Details LastModified Time Do you feel stressed (tense, restless, nervous, or anxious, or unable to sleep at night)? [id number] Information not available 08/09/2023 Do you have difficulty concentrating, remembering or making decisions? No Information no t available 08/09/2023 Family History Relationship Description Onset Age of this Age Resolved Age Notes LastModified by Organization Details LastModified Time Mother Dysplasia of cervix Not available 2023 14:54:35 Maternal Grandmother Malignant tumor of cervix Not available 2023 14:55:16 Maternal Grandmother Malignant neoplasm of ovary Not available 2023 14:55:29 Paternal Aunt Polycystic ovary syndrome Not available 2023 14:57:59 Paternal Aunt Endometrial carcinoma Not available 2023 14:57:47 Sister Endometrial carcinoma Not available 2023 14:56:11 Sister Disorder of thyroid gland Not available 2023 14:56:39 Sister Polycystic ovary syndrome Not available 2023 14:58:03 Maternal Aunt Malignant tumor of breast Not available 2023 14:57:10 Paternal Grandmother Malignant tumor of breast Not available 2023 14:57:28 Paternal Grandfather Malignant neoplasm of prostate Not available 2023 14:59:05 Paternal Uncle Malignant neoplasm of prostate Not available 2023 14:59:05 Medical History Condition Response Other Y Breast Cancer N Vaccines N Depression N Lung Disease N Defects or Inherited Disease N Breast Problem N Sickle Cell Anemia N Anesthesia Complications N Headaches/Migraines Y Cystic Fibrosis N Anxiety Disorder Y Arthritis N Infertility N Polyps N Acid Reflux (GERD) N Cancer N Stroke N Varicosities N Endometriosis N High Cholesterol N Fibromyalgia N Neurological/Seizures N Kidney Disease N Heart Problems N Kidney or Bladder Problems N Thyroid Problems N GI Problems N Acne N Eating Disorder N Anemia Y Varicella status N Psychiatric Illness N Ovarian Cancer N Diabetes N Blood Transfusions N Eczema N Abuse/Domestic Violence N Asthma N Hepatitis N Heart Disease N Pre-Eclampsia N Hypertension N Osteoporosis N Thrombophilias N Gynecological History Statement/Question Response Abnormal Pap N Flow Heavy Date of LMP 08/27/2024 STIs/STDs N HPV Vaccine Y Duration of Flow (days) 7 Age at Menarche 12 Current Control Method Most Recent Mammogram Frequency of Cycle (Q days) 28 Most Recent Bone Density Number of Pregnancies 5 Menses Monthly Y Date of Last Pap Smear 07/12/2020 Number of Children 2 Obstetrics History GPAL:G 8 P 2 0 5 2 Type Value Multiple Births 0 Full Term 2 Induced 0 Spontaneous 5 Premature 0 Living 2 Ectopics 0 Total 8 Past Encounters Encounter ID Performer Location Encounter Start Date Encounter Closed Date Diagnosis/Indication Diagnosis SNOMED-CT Code Diagnosis ICD10 Code Diagnosis Note [id number] NATALIE DOMÍNGUEZ CNM [place] [address] [place] [address] 11/17/2024 13:52:05 11/17/2024 15:02:39 Normal 26103307 Z34.90 Refractory migraine without aura 744482398 G43.019 Gestation period, 10 weeks 80666957 Z3A.10 [id number] [facility] [address] [place] [address] 11/17/2024 13:51:35 11/17/2024 14:11:54 screening 437237486 Z36.87 [id number] [facility] [address] [place] [address] 12/15/2024 14:37:07 12/15/2024 15:26:57 Normal 97658699 Z34.80 Acute migraine 605992454 1 41234 G43.909 Gestation period, 14 weeks 43598002 Z3A.14 Hyperemesi s gravidarum 31975325 O21.0 Health Concerns Section Related Observation LastModified by Organization Detai ls LastModified Time None Recorded Concern Status LastModified by Organization Details LastModified Time None Recorded Payers Encounter Date Sequence Insurance Name Policy Number Policy Greene Covered Member ID Greene Member ID Guarantor Name 12/15/2024 1 [facility] ([facility] [place] [id number] Karol Cuello [id number] Karol Orellana [facility] Episode Ob Episode Information Episode Created Date Number of Fetuses Patient Bloodtype Patient rh Status Prepregnancy Weight lbs Domestic Partner Domestic Partner Phone Father Name Cookie Mixer Helper Status 11/11/19 25 1 A Positive OPEN Fetus Data First Name Last Name Admitted to NICU Weight (g) Sex Living Outcome Pediatric Complications Fetus ID Race Codes Race Delivery Type [id number] Problems Problem Notes Problem Name Start Date End Date Resolution Snomed Code Not e Past history of recurrent miscarriage 11/10/2024 1849450937 x5, pt requesti ng vaginal progesterone Past history of section 11/10/2024 545145853 LTCS x2, RLTCS @ 39 weeks Migraine 11/17/2024 12451294 Neurology consult given Samanta Calculation Initial Samanta Date Initial Exam Date Initial Exam Provider Initial Ultrasound Date Last Menstrual Period Date Ultra Sound Weeks Gestation 11/10/2024 0 Eighteen To Twenty Week Samanta Update Ultra Sound Date Fundal Height At Umbil Quickening Date Ultra Sound Latest Weeks Gestation Final Samanta Confirmed By Final Samanta Confirmed Date Final Samanta Date Ultra Sound Latest Days Gestation 0 06/12/20 25 0 Pre-josé manuel Flowsheet Flowsheet Date 11/10/2024 Yuen Score Blood Edema Fundus Height Fundus Units Glucose Ketones Leukocytes Nitrite Labor Signs Protein Cervic Dilation Cervic Effacement Cervic Station Type Weight in lbs Pre/Post Dialysis Refused With clothes 169.423871814237 BP Diastolic BP Location Tested BP Systolic BP Type 68 128 Fetus Heart Rate Present Fetus Movement Comments Flowsheet Date 11/17/2024 Yuen Score Blood Edema Fundus Height Fundus Units Glucose Ketones Leukocytes Nitrite Labor Signs Protein Cervic Dilation Cervic Effacement Cervic Station Type Weight in lbs Pre/Post Dialysis Refused BP Diastolic BP Location Tested BP Systolic BP Type Fetus Heart Rate Present Fetus Movement Comments Flowsheet Date 11/17/2024 Yuen Score Blood Edema Fundus Height Fundus Units Glucose Ketones Leukocytes Nitrite Labor Signs Protein Cervic Dilation Cervic Effacement Cervic Station none Type Weight in lbs Pre/Post Dialysis Refused With clothes 173.60214577100 BP Diastolic BP Location Tested BP Systolic BP Type 74 132 Fetus Heart Rate Present A 166 Present Fetus Movement Comments CNM Note: Pt is a @ 10 3/7wks gestation here for NOBV and U/S dating/viability. Denies vaginal bleeding or uterine cramping. NOB labs today. PE today- pt does not need pap smear today. Pt declines genetic testing. CNM model of care with MD/EDITA for consult and MD in hospital as needed. [facility] for deliverying hospital. Pt reports frequent migraines. Currently taking Excedrin (w/o ASA) but reports minimal relief at times. Pt prescribed Fioricet today, instructed to take one if severe migraine is beginning, up to every four hours. Risks and benefits weighed. Discussed diet and hydration to aid in preventing migraines. Pt was seen in ER for migraine, was treated with IV fluids/benedryl/steroids. Pt states BP was 130s/80s at hospital. BP normal today, will continue to monitor. Pt is also taking progesterone suppositories, reporting no concerns or problems. Rev'd US: 10W3D SINGLE LIVE IUP S<D BY 9 DAYS, SAMANTA BY US 06/12/25EDD changed from LMP date to US dating that was completed at 9wks. S/S of SbAB and preeclampsia reviewed, pt understands and will report if experienced. RTO 4wks OBV. [facility] Flowsheet Date 12/15/2024 Yuen Score Blood Edema Fundus Height Fundus Units Glucose Ketones Leukocytes Nitrite Labor Signs Protein Cervic Dilation Cervic Effacement Cervic Station Type Weight in lbs Pre/Post Dialysis Refused 168.131334816032 BP Diastolic BP Location Tested BP Systolic BP Type 72 124 Fetus Heart Rate Present A 158 Present Fetus Movement A No Comments CN Note: Pt is a 24 y.o G8P 2051 at 14 3/7wks gestation here for OBV. -VB/-LOF. Reports weekly migraines. Denies vision changes or RUQ pain. Pt reports intractable nausea and vomiting, causing low nutrition intake, dehydration, and occasional pelvic cramping. Pt advised to go to ER for IV fluids, all other options have been exhausted including medication mgmt. Pt also reports debilitating migraines once a week that have not resolved with recommended treatment. Referral to [facility] sent. Rev'd NOB labs, WNLs. Rev'd s/s of SpAB and preeclampsia to report. RTO 2 wks OBV for continued evalution of hyperemesis gravidarum and headaches. [facility] Flowsheet Date 12/18/2024 Yuen Score Blood Edema Fundus Height Fundus Units Glucose Ketones Leukocytes Nitrite Labor Signs Protein Cervic Dilation Cervic Effacement Cervic Station none Type Weight in lbs Pre/Post Dialysis Refused Stated 170.774824206868 BP Diastolic BP Location Tested BP Systolic BP Type 62 116 sitting Fetus Heart Rate Present A 142 Present Fetus Movement Comments OBV- pt is having nausea SLG race is here for f/u after hospitalization-- Recently in the hospital for N/V, and reports multiple hospitalizations in the last month - discharged Wednesday afternoon, felt better after fluids and medications. Promethazine helped in the hospital but physician sent her home with Zofran (not working). -- Migraines - Excendrin tension helps normally, Fioricit - she has only taken this three times when nothing else works-- Constipation prior to hospitalization - dehydration contributed - denies constipation today-- Will send Rx for promethazine - states she has enough Zofran. -- Returns to [place] this afternoon and will pick it up at different pharmacy (coparents another child and so is traveling frequently).-- Advised to go to ER for continued sxs of refractory nausea/vomiting that lasts >24 hrs, unable to keep fluids down.MH, CNM Menstrual History Last Menstrual Date Menses Monthly On Bcp Conception Prior Menses Frequency Hcg Plus Date Menarche Onset Age Delivery Information Delivery Date Delivery Type Labor Anesthesia Weeks Gestation Incision Type Labor Labor Length Hrs Delivered By Post Complications Tubal Sterilization Discharge Date Comments Discharge Information Feeding Method Contraceptive Method Maternal HG B and HCT Levels
--- OUTSIDE RECORDS SUMMARY | 2024-12-27 10:59 | XMS_ITS | Data Portability ---
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 Name Role Phone RYANNE CARROLL Primary Care Provider [phone] Assessment Encounter Date Assessment Date Assessment LastModified by Organization Details LastModified Time 11/10/2024 11/10/2024 -LMP: 08-27-24, irregular cycles -EDC: 12-2-25 per 9 wk at [facility] on 11-09-24 -Approximate Gestational Age: 9w3d - Pap smear- 2023 WNL OBHx- G1- 2020, SpAB G2- 2020, SpAB G3- 2020, Girl, 8lbs, 41 1/2 wks, LTCS-failure to descend, no complications G4- 2021, SpAB G5- 2022, SpAB, cytotec G6- 2023, Girl, 6lbs 14 oz, 39wks, RLTCS- hemorrhage with blood transfusion, Hyperemesis Gravidarum G7- 2024, SpAB G8- current PMHx- hx of anemia PSHx- LTCS x2, 3 shoulder arthroscopies GynHx- no abnormal pap smears, No STIs, irregular cycles FamHx- Father/MGM/PGM-HT N, MGF- heart disease, sister-PCOS/endom etriosis/hashimot os, MGM- cervical cancer, PGM-breast cancer/hypothyroi dism SocHx- Denies ETOH/Drug/Tobacco use, unplanned, FOB/engaged, 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 Pt declines genetic screening. -Discussed routine labs. Pt agrees to all except genetic screening and hgb electrophoresis as already completed -Oriented to [facility] model, providers, delivery hospital, ultrasounds at 8wks (conf) and 20wks (SS) 36 wks if necessary -PNV with folic acid -RX for Vitamin D3 -Nausea/vomiting reviewed Vit B6 and Unisom -Rx for Zofran Discussed: -Medication avoidance during , pt given safe med handout -Avoid consumption of raw foods like raw sushi, undercooked meats, heat lunch meat up until steaming, minimize amount of unpasturized products (apple cider). - Encouraged healthy diet, low carb, high protein. Protein drinks OK. Increase vegetables, fruits. - Encouraged daily exercise in . Previous exercise still OK. Walks daily, light exercise if new. -Increase water intake, same as 4-6 regular water bottles per day or 64-100oz per day -S/S to report vaginal bleeding, severe abdominal cramping, unable to tolerate food/fluids for 24hrs or more. SpAB precautions. 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 Pt requesting Rx for vaginal progesterone supplementation. Rev'd research indicates no significant reduction in SpAB occurrence with use of progesterone. Pt desires to continue with treatment. Pt to insert 1 200mg prog. suppository PV @ HS. - Rev'd U/S report from the hospital on 11/09/24. No evidence of ovarian cyst on the left side however, the right side could not be visualized. Pt believes the cyst to have been on the right side. Rev'd if significant pain and or vaginal bleeding occurs again to proceed to the ER. Will repeat U/S for dating/viability/ ovarian cyst evaluation CLARISSE. RTO for NOBV, U/S (at least 8wks), initial labs and PE clarisse Natalie Domínguez CNM Not available 11/10/2024 17:11:21 11/17/2024 11/17/2024 4wks obv see flowsheet Not available 11/17/2024 15:39:59 12/15/2024 12/15/2024 See flowsheet RTO 2wks OBV Not available 12/15/2024 15:25:26 12/18/2024 12/18/2024 See flowsheet [email or web address] Not avail able 12/18/2024 08:21:27 Plan of Treatment Reminders Order Date Submit Date Provider Last Modified By Organization Details Last Modified Time Details Appointments OB ESTABLISH ED 2024 01:30P Jacob DOMÍNGUEZ CNM Not available Not available Not available Lab hepatitis C virus Ab, serum 2024 025 [employer], [address] [facility], [address], [place], [address], 11/18/2024 07:20:05 panel 2024 [address] [facility] [employer], [address] [facility], [address], [place], [address], 11/18/2024 07:20:05 test, urine 2024 025 In-House Results, For Internal Use Only, Do Not Delete/merge, [id number] 11/10/2024 15:44:39 beta-HCG, quantitat reta, serum or plasma 2024 025 [employer] [address] , [place], [address], 11/11/2024 07:18:33 beta-HCG, quantitat reta, serum or plasma 2024 025 [employer] [address], [place], [address], 11/12/2024 03:01:55 culture, urine 2024 025 [employer] [address] , [place], [address], 11/14/2024 07:23:50 STI panel 2024 025 [employer] [address], [place], [address], 11/10/2024 15:44:[address] referral 2024 025 [facility], [address], [address], [place], [address], 12/15/2024 16:10:41 Procedures None recorded. Surgeries None recorded. Imaging US, pelvis, transabdo pam + transvagi nal 2024 025 [email or web address] Not available 11/21/2024 07:56:55 Medication Orders promethaz ine 25 mg tablet 2024 025 [id number], [address], [place], [address], 12/18/2024 14:27:10 Fioricet 50 mg-300 mg-40 mg capsule 2024 025 [facility], [address], [place], [id number], 11/17/2024 14:47:10 Progester one supposito yoni 200mg vaginally 2024 025 [facility], [address], [place], [id number], 11/10/2024 15:45:11 ondansetr on 4 mg disintegr ating tablet 2024 025 [facility], [address], [place], [id number], 11/10/2024 15:45:09 Vitamin D3 50 mcg (2,000 unit) capsule 2024 025 [facility], [address], [place], [id number], 11/10/2024 15:45:10 Patient TargetsNo targets recorded. Patient Instructions Encounter Date Encounter Id Patient Instructions Last Modified By Organization Details Last Modified Time 11/10/2024 [id number] hyperemesis diet Not availabl e 11/10/2024 15:44:39 Initial confirmation of packet Not available 11/10/2024 15:44:39 Zika education Not available 0 11/10/2024 15:44:39 Nutrition in Not available 11/10/2024 15:44:38 Precautions Not available 11/10/2024 15:44:38 Medications Safe for Not available 11/10/2024 15:44:38 early warning signs Not available 11/10/2024 15:44:39 11/17/2024 [id number] exercise during : care instructions Not available 11/17/2024 14:46:48 influenza virus vaccine (injection) Not available 11/17/2024 14:46:48 When Is my Baby Due Not available 11/17/2024 14:46:48 New OB packet Not available 14:46:48 Reason for Referral Neurologist Referral for Acu te migraine Referring Physician: Natalie Domínguez, Certified Nurse Assembler Watch Train, Encounter Date: 12/15/2024 Results Created Date Observation Date Name Description Value Unit Range Abnormal Flag Note LastModifiedBy Organization Detail LastModifiedTime 11/11/1911/10/2024 BETA HCG QUANT beta HCG quant 640307 .00 mIU/m L REFER ENCE RANGE S FOR PREGN ANT FEMAL ES: APPRO XIMAT E GESTA ANDREINA L AGE VALUE (Yu/ mL) 1 - 2 WEEKS 9 - 130 2 - 3 WEEKS 75 - 2,600 3 - 4 WEEKS 850 - 20,80 0 4 - 5 WEEKS 4,000 - 100,2 00 5 - 10 WEEKS 11,50 0 - 289,0 00 10 - 14 WEEKS 18,30 0 - 137,0 00 14 - 27 WEEKS 1,400 - 53,00 0 27 - 29 WEEKS 940 - 60,00 0 NONPR EGNAN T FEMAL ES < 5 MALES < 5 *NOTE : FOR VALUE S BETWE EN 5 AND 25 mIU/m L, IT IS RECOM ED D THAT A REPEA T SAMPL E BE SUBMI TTED IN ONE WEEK. Not Available [employer] [address] [facility], [place], [address], 11/11/2024 07:18:33 11/11/19 25 11/10/2024 URINE CULTU RE urine culture RESUL TS: DIPHT HEROI D SPECI ES, 1,000 CFU/M L UNABL E TO PERFO RM STI PROFI LE URINE , NO URINE CUP RECEI KRISHAN. DPM Not Available [employer] [address] [facility], [place], [address], 11/14/2024 07:23:50 11/11/1911/10/2024 pregn ailyn test, urine HCG positi ve Not Available In-House Results For Internal Use Only, Do Not Delete/merge, [id number] 11/10/2024 14:48:01 11/18/19 25 11/17/2024 ANTI- HCV anti-HCV NONREA CT nonrea ct Not Available [employer] [address] [facility], [place], [address], 11/18/2024 07:20:05 11/18/19 25 11/17/2024 WE PRENA TEL PROFI LE- BT WBC 14.0 10e3/ uL 4.5 - 10.0 high Not Available [employer] [address] [place], [address], 11/18/2024 07:20:05 11/18/19 25 11/17/2024 WE PRENA TEL PROFI LE- BT RBC 4.83 10e6/ uL 3.9 - 5.1 Not Available [employer] [address] [place], [address], 11/18/2024 07:20:05 11/18/19 25 11/17/2024 WE PRENA TEL PROFI LE- BT HGB 12.2 g/dL 11.7 - 16.0 Not Available [facility] [address] [facility], [place], [address], 11/18/2024 07:20:05 11/18/19 25 11/17/2024 WE PRENA TEL PROFI LE- BT HCT 38.0 % 34.1 - 44.3 Not Available [facility] [address] [facility], [place], [address], 11/18/2024 07:20:05 11/18/19 25 11/17/2024 WE PRENA TEL PROFI LE- BT MCV 78.8 fL 83.7 - 101.6 low Not Available [facility] [address] [facility], [place], [address], 11/18/2024 07:20:05 11/18/19 25 11/17/2024 WE PRENA TEL PROFI LE- BT MCH 25.3 pg 26.1 - 33.5 low Not Available [facility] [address] [facility], [place], [address], 11/18/2024 07:20:05 11/18/19 25 11/17/2024 WE PRENA TEL PROFI LE- BT MCHC 32.1 g/dL 30.0 - 35.3 Not Available [facility] [address] [facility], [place], [address], 11/18/2024 07:20:05 11/18/19 25 11/17/2024 WE PRENA TEL PROFI LE- BT RDW 15.6 % 10.5 - 15.5 high Not Available [facility] [address] [facility], [place], [address], 11/18/2024 07:20:05 11/18/19 25 11/17/2024 WE PRENA TEL PROFI LE- BT plt CT 301 10e3/ uL 150 - 400 Not Available [facility] [address] [facility], [place], [address], 11/18/2024 07:20:05 11/18/1911/17/2024 WE PRENA TEL PROFI LE- BT MPV 9.5 fL 5.0 - 13.1 Not Available [employer] [address] [facility], [place], [address], 11/18/2024 07:20:05 11/18/1911/17/2024 WE PRENA TEL PROFI LE- BT lymph% 31.5 % 17.4 - 48.2 Not Available [employer] [address] [facility], [place], [address], 11/18/2024 07:20:05 11/18/1911/17/2024 WE PRENA TEL PROFI LE- BT mono% 5.6 % 3.0 - 10.5 Not Available [facility] [employer] [address] [facility], [place], [address], 11/18/2024 07:20:05 11/18/19 25 11/17/2024 WE PRENA TEL PROFI LE- BT neut% 62.2 % 43.4 - 76.2 Not Available [facility] [employer] [address] [facility], [place], [address], 11/18/2024 07:20:05 11/18/1911/17/2024 WE PRENA TEL PROFI LE- BT eos% 0.5 % 0.0 - 6.0 Not Available [employer] [address] [place], [address], 11/18/2024 07:20:05 11/18/1911/17/2024 WE PRENA TEL PROFI LE- BT baso% 0.2 % 0.0 - 3.0 Not Available [employer] [address] [place], [address], 11/18/2024 07:20:05 11/18/19 25 11/17/2024 WE PRENA TEL PROFI LE- BT abs. lymph 4.40 10e3/ uL 1.2 - 3.0 high Not Available [facility] [address] [facility], [place], [address], 11/18/2024 07:20:05 11/18/19 25 11/17/2024 WE PRENA TEL PROFI LE- BT abs. mono 0.80 10e3/ uL 0.15 - 0.80 Not Available [facility] [address] [facility], [place], [address], 11/18/2024 07:20:05 11/18/19 25 11/17/2024 WE PRENA TEL PROFI LE- BT abs. neut 8.70 10e3/ uL 1.2 - 6.8 high Not Available [facility] [employer] [address] [place] [address], [place], [address], 11/18/2024 07:20:05 11/18/19 25 11/17/2024 WE PRENA TEL PROFI LE- BT abs. eos 0.10 10e3/ uL 0.0 - 0.50 Not Available [facility] [address] [place] [address], [place], [address], 11/18/2024 07:20:05 11/18/19 25 11/17/2024 WE PRENA TEL PROFI LE- BT abs. baso 0.00 10e3/ uL 0.0 - 0.2 Not Available [facility] [address] [place] [address], [place], [address], 11/18/2024 07:20:05 11/18/19 25 11/17/2024 WE PRENA TEL PROFI LE- BT rubella IgG 13 IU/mL < 10 high <8 ...NE GATIV E 8 - 9 ...EQ UIVOC AL >= 10 ...PO SITIV E (IMMU NE) Not Available [facility] [address], [place], [address], 11/18/2024 07:20:05 11/18/19 25 11/17/2024 WE PRENA TEL PROFI LE- BT hep B surf Ag NONREA CT nonrea ct Not Available [employer] [address], [place], [address], 11/18/2024 07:20:05 11/18/19 25 11/17/2024 WE PRENA TEL PROFI LE- BT varicella zoster IgG 1.1 ai 0.0 - 0.8 high NEGAT RETA: < OR = 0.8 EQUIV OCAL: 0.9 - 1.0 POSIT RETA: > OR = 1.1 A POSIT RETA RESUL T PRESU MES A PAST INFEC TION WITH VZV, OR PRIOR IMMUN IZATI ON TO VZV. Not Available [employer] [address], [place], [address], 11/18/2024 07:20:05 11/18/19 25 11/17/2024 WE PRENA TEL PROFI LE- BT WBC 14.0 10e3/ uL 4.5 - 10.0 high Not Available [facility] [employer] [address] [facility], [place], [address], 11/21/2024 07:24:33 11/18/19 25 11/17/2024 WE PRENA TEL PROFI LE- BT RBC 4.83 10e6/ uL 3.9 - 5.1 Not Available [employer] [address] [facility], [place], [address], 11/21/2024 07:24:33 11/18/19 25 11/17/2024 WE PRENA TEL PROFI LE- BT HGB 12.2 g/dL 11.7 - 16.0 Not Available [employer] [address] [facility], [place], [address], 11/21/2024 07:24:33 11/18/19 25 11/17/2024 WE PRENA TEL PROFI LE- BT HCT 38.0 % 34.1 - 44.3 Not Available [facility] [address] [facility], [place], [address], 11/21/2024 07:24:33 11/18/1911/17/2024 WE PRENA TEL PROFI LE- BT MCV 78.8 fL 83.7 - 101.6 low Not Available [facility] [address] [facility], [place], [address], 11/21/2024 07:24:33 11/18/1911/17/2024 WE PRENA TEL PROFI LE- BT MCH 25.3 pg 26.1 - 33.5 low Not Available [facility] [address] [facility], [place], [address], 11/21/2024 07:24:33 11/18/19 25 11/17/2024 WE PRENA TEL PROFI LE- BT MCHC 32.1 g/dL 30.0 - 35.3 Not Available [facility] [address] [facility], [place], [address], 11/21/2024 07:24:33 11/18/19 25 11/17/2024 WE PRENA TEL PROFI LE- BT RDW 15.6 % 10.5 - 15.5 high Not Available [facility] [address] [facility], [place], [address], 11/21/2024 07:24:33 11/18/1911/17/2024 WE PRENA TEL PROFI LE- BT plt CT 301 10e3/ uL 150 - 400 Not Available [facility] [address] [facility], [place], [address], 11/21/2024 07:24:33 11/18/19 25 11/17/2024 WE PRENA TEL PROFI LE- BT MPV 9.5 fL 5.0 - 13.1 Not Available [facility] [employer] [address] [facility], [place], [address], 11/21/2024 07:24:33 11/18/19 25 11/17/2024 WE PRENA TEL PROFI LE- BT lymph% 31.5 % 17.4 - 48.2 Not Available [employer] [address] [facility], [place], [address], 11/21/2024 07:24:33 11/18/19 25 11/17/2024 WE PRENA TEL PROFI LE- BT mono% 5.6 % 3.0 - 10.5 Not Available [employer] [address] [facility], [place], [address], 11/21/2024 07:24:33 11/18/19 25 11/17/2024 WE PRENA TEL PROFI LE- BT neut% 62.2 % 43.4 - 76.2 Not Available [facility] [address] [facility], [place], [address], 11/21/2024 07:24:33 11/18/19 25 11/17/2024 WE PRENA TEL PROFI LE- BT eos% 0.5 % 0.0 - 6.0 Not Available [facility] [employer] [address] [facility], [place], [address], 11/21/2024 07:24:33 11/18/19 25 11/17/2024 WE PRENA TEL PROFI LE- BT baso% 0.2 % 0.0 - 3.0 Not Available [employer] [address] [facility], [place], [address], 11/21/2024 07:24:33 11/18/19 25 11/17/2024 WE PRENA TEL PROFI LE- BT abs. lymph 4.40 10e3/ uL 1.2 - 3.0 high Not Available [employer] [address] [facility], [place], [address], 11/21/2024 07:24:33 11/18/19 25 11/17/2024 WE PRENA TEL PROFI LE- BT abs. mono 0.80 10e3/ uL 0.15 - 0.80 Not Available [employer] [address] [facility], [place], [address], 11/21/2024 07:24:33 11/18/19 25 11/17/2024 WE PRENA TEL PROFI LE- BT abs. neut 8.70 10e3/ uL 1.2 - 6.8 high Not Available [employer] [address] [facility], [place], [address], 11/21/2024 07:24:33 11/18/19 25 11/17/2024 WE PRENA TEL PROFI LE- BT abs. eos 0.10 10e3/ uL 0.0 - 0.50 Not Available [employer] [address] [facility], [place], [address], 11/21/2024 07:24:33 11/18/19 25 11/17/2024 WE PRENA TEL PROFI LE- BT abs. baso 0.00 10e3/ uL 0.0 - 0.2 Not Available [employer] [address] [facility], [place], [address], 11/21/2024 07:24:33 11/18/19 25 11/17/2024 WE PRENA TEL PROFI LE- BT syphilis total Ab NONREA CTIV nonrea ctiv Not Available [employer] [address] [facility], [place], [address], 11/21/2024 07:24:33 11/18/19 25 11/17/2024 WE PRENA TEL PROFI LE- BT ABO group A Not Available [employer] [address] [place] [address], [place], [address], 11/21/2024 07:24:33 11/18/19 25 11/17/2024 WE ANITRA TEL PROFI LE- BT Rh typing POSITI VE Not Available [employer] [address] [facility], [place], [address], 11/21/2024 07:24:33 11/18/19 25 11/17/2024 WE PRENA TEL PROFI LE- BT rubella IgG 13 IU/mL < 10 high <8 ...NE GATIV E 8 - 9 ...EQ UIVOC AL >= 10 ...PO SITIV E (IMMU NE) Not Available [employer] [address] [facility], [place], [address], 11/21/2024 07:24:33 11/18/19 25 11/17/2024 WE PRENA TEL PROFI LE- BT hep B surf Ag NONREA CT nonrea ct Not Available [employer] [address] [facility], [place], [address], 11/21/2024 07:24:33 11/18/1911/17/2024 WE PRENA TEL PROFI LE- BT varicella zoster IgG 1.1 ai 0.0 - 0.8 high NEGAT RETA: < OR = 0.8 EQUIV OCAL: 0.9 - 1.0 POSIT RETA: > OR = 1.1 A POSIT RETA RESUL T PRESU MES A PAST INFEC TION WITH VZV, OR PRIOR IMMUN IZATI ON TO VZV. Not Available [employer] [address] [facility], [place], [address], 11/21/2024 07:24:33 11/18/1911/17/2024 WE PRENA TEL PROFI LE- BT antibody screen N.DETE CTED N.dete cted Not Available [employer] [address] [facility], [place], [address], 11/21/2024 07:24:33 Result Notes None recorded. Problems Name Problem SNOMED Code Status Onset Date Resolution Date Notes Provider Name and Address Organization Details Recorded Time Pregnanc y 68902543 Completed 202303/29/2024 NATALIE DOMÍNGUEZ, NICHELLE [address], [place], [address], [facility] 5 17:02:08 History of anxiety state 780159713 Active Court with ex regardin g prior domestic issues PALOMO VIVAR CNM [address], [place], [address], [facility] 4 13:57:17 History of anxiety state 058118834 Completed Court with ex regardin g prior domestic issues PALOMO VIVAR CNM [address], [place], [address], [facility] 4 13:57:17 Migraine 18016137 Completed Cyclic PALOMO VIVAR CNM [address], [place], [address], [facility] 4 13:57:17 Past pregnanc y history of section 120430177 Completed Op report reviewed -TOLAC ok PALOMO VIVAR CNM [address], [place], [address], [facility] 4 14:57:49 Fatigue 00294234 Active 2023 PALOMO VIVAR CNM [address], [place], [address], [facility] 4 13:45:42 Diastasi s recti 06463897 Completed Plan PT PP PALOMO VIVAR CNM [address], [place], [address], [facility] 4 13:57:17 Dysuria 40583396 Active 2023 PALOMO VIVAR CNM [address], [place], [address], [place] [facility] 4 13:55:20 Bacteria l vaginosi s in pregnanc y 06183807349 9109 Active 2023 PALOMO VIVAR CNM [address], [place], [address], [place] [facility] 4 15:33:40 Pregnanc y 78556435 Active 2024 NATALIE DOMÍNGUEZ CNM [address], [place], [address], [place] [facility] 5 17:02:08 Past pregnanc y history of recurren t miscarri age Active 2024 x5, pt requesti ng vaginal progeste kelly NATALIE DOMÍNGUEZ CNM [address], [place], [address], [facility] 5 17:04:23 Past pregnanc y history of section 615245781 Active 2024 LTCS x2, RLTCS @ 39 weeks NATALIE DOMÍNGUEZ CNM [address], [place], [address], [facility] 5 17:05:20 Migraine 82214302 Active 2024 Neurolog y consult given NATALIE DOMÍNGUEZ CNM [address], [place], [address], [facility] 5 16:00:55 Problem Notes None recorded. Procedures Surgical History Date Name Laterality Status Provider Name and Address Organization Details Recorded Time 5 US First Trimester OB Single completed Radha Polo [place] [facility] 11/17/2024 14:11:12 4 SVC Time WEOG completed Kianna Nieves [place] [facility] 03/31/2024 16:15:02 4 delivery completed Piyush Trejo [place] [facility] 03/29/2024 10:05:23 4 US OB Complete / Structural Survey completed Carolina Bradshaw [facility] 10/20/2023 09:01:43 4 First Trimester OB Single completed Annette Clouse [facility] 08/23/2023 12:20:47 2 Colposcopy completed Donald Boydcatarino [facility] 08/09/2023 15:06:16 1 section completed Donald Boydcatarino [facility] 08/09/2023 15:04:52 1 Date of Last Pap Smear completed Donald Boydcatarino [facility] 08/09/2023 14:50:03 5 extraction of wisdom tooth completed Donald Boydcatarino [facility] 08/09/2023 15:05:23 procedure on shoulder completed Donald Boydcatarino [facility] 08/09/2023 15:05:49 Imaging Results None recorded. Procedure Notes None recorded. Medical Equipment None Reported. Allergies Allergen ID Allergen Name Allergen Category Reaction Reaction Severity Criticality Documentation Date Start Date Code Code System Note Provider Name and Address Organization Details Recorded Time 12948 adhesive tape environme nt,medica tion other Not available high 08/09/2023 98346 UNK Skin peeli ng. Redne ss and blist ers. VIVIAN CHAN, CN [address] , [place], [address], [facility] 4 15:18:10 [address]2812 iodine medicatio n other Not available high [...] Available Not Available Vitals Date Recorded Body height Body mass index (BMI) Body weight Systolic blood pressure Diastolic blood pressure Provider Name and Address Organization Details Last Updated DateTime 11/10/2024 157.48 cm 30.9 kg/m2 55497.11 g 128 mm[Hg] 68 mm[Hg] Ema Clifton [facility] 14:45:27 Date Recorded Body weight Systolic blood pressure Diastolic blood pressure Provider Name and Address Organization Details Last Updated DateTime 11/17/2024 05318.8392 47 g 132 mm[Hg] 74 mm[Hg] Ema Clifton [facility] 11/17/2024 14:19:19 Date Recorded Body weight Systolic blood pressure Diastolic blood pressure Provider Name and Address Organization Details Last Updated DateTime 12/15/2024 41770.8773 97 g 124 mm[Hg] 72 mm[Hg] Caron Enrique [facility] 12/15/2024 14:45:59 Date Recorded Body weight Systolic blood pressure Diastolic blood pressure Provider Name and Address Organization Details Last Updated DateTime 12/18/2024 37820.7029 g 116 mm[Hg] 62 mm[Hg] Mahsa Bryan [facility] 12/18/2024 14:15:28 Social History Question Answer Notes LastModified by Organizat ion Details LastModified Time Tobacco Smoking Status Never Smoker Donald barboza [facility] 08/09/2023 15:00:25 Do You Have An [...] Have You Used? MJ Last Use 01/2023. [email or web address] Information not available 08/09/2023 What Is The Highest Grade Or Level Of School You Have Completed Or The Highest Degree You Have Received? [id number] Information not available 08/09/2023 Have There Been Any Changes To Your Family Or Social Situation? No Lives In [place] Information not available 08/09/2023 Are There Any [...] anxious, or unable to sleep at night)? [id number] Information not available 08/09/2023 Do you have [...] Other Y Breast Cancer N Vaccines N Lung Disease N Depression N Defects or Inherited Disease N Breast Problem N Sickle Cell Anemia N Anesthesia Complications N Headaches/Migraines Y Anxiety Disorder Y Cystic Fibrosis N Arthritis N Polyps N Infertility N Acid Reflux (GERD) N Cancer N Stroke N Varicosities N Endometriosis N High Cholesterol N Fibromyalgia N Neurological/Seizures N Kidney Disease N Heart Problems N Thyroid Problems N Kidney or Bladder Problems N GI Problems N Acne N Eating Disorder N Anemia Y Varicella status N Psychiatric Illness N Diabetes N Ovarian Cancer N Blood Transfusions N Eczema N Abuse/Domestic [...] SNOMED-CT Code Diagnosis ICD10 Code Diagnosis Note [id number] VIVIAN CHAN CNM [place] [address] [place] [address] 08/09/2023 14:24:41 08/09/2023 15:46:17 Irregular periods 49989505 N92.5 Normal 5576029 2 Z34.90 Screening for disorder 251427205 Z13.9 screening 2437 01362 Z36.9 [id number] VIVIAN CHAN CNM [place] [address] [place] [address] 08/24/2023 08:58:55 08/24/2023 10:10:08 Normal 51423304 Z34.90 23 yo at 12.5 wks of an single IUP by LMP cw sono. Normal physical findings. Declines genital exam, CASTREJON and occasional nausea. GC &CT. Reviewed and updated history. Reviewed preg plan of care. Reviewed preg precaution s. Reviewed all labs which are WNL. RTO 4 wks. Polyuria 21411733 R35.89 Cluster headache 0718982 09 G44.009 Reviewed CASTREJON precaution s and establishe d a plan of care of magnesium treatment daily. Education material sent. [id number] VIVIAN CHAN CNM [place] [address] [place] [address] 08/23/2023 11:51:16 08/23/2023 12:21:24 ultrasound finding 489249980 Z33.1 [id number] VIVIAN CHAN CNM [place] [address] [place] [address] 09/21/2023 08:45:13 09/21/2023 09:14:06 Normal 88420523 Z34.80 Nausea and vomiting 1693 1999 R11.2 Acid reflux 062770208 K2 1.9 [id number] Tom Wing MD [facility] [address] [place] [address] 10/20/2023 08:59:23 10/20/2023 09:35:30 Normal 48588481 Z34.80 Gestation period, 20 weeks 26908841 Z3A.20 History of anxiety state 136191157 F41.9 [id number] Tom Wing MD [place] [address] [place] [address] 10/20/2023 08:15:07 10/20/2023 09:02:30 screening 045916919 Z36.3 [id number] VIVIAN CHAN CNM [place] [address] [place] [address] 11/22/2023 09:10:53 11/22/2023 10:23:48 Normal 16041077 Z34.80 Nausea and vomiting 1693 1999 R11.2 Gestation period, 25 weeks 80744936 Z3A.25 [id number] Tom Wing MD [place] [address] [place] [address] 12/08/2023 09:27:50 12/08/2023 10:12:10 Normal 63425184 Z34.90 Screening for disorder 976599235 Z13.9 [id number] Tom Wing MD [facility] [address] [place] [address] 12/22/2023 07:40:04 12/22/2023 08:41:38 [id number] Antoine haley, DO [place] [address] [place]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 Menstrual Date Menses Monthly On Bcp Conception Prior Menses Frequency Hcg Plus Date Menarche Onset Age Delivery Information Delivery Date Delivery Type Labor Anesthesia Weeks Gestation Incision Type Labor Labor Length Hrs Delivered By Post Complications Tubal Sterilization Discharge Date Comments 3 8 Complete , uncomplic ated. Discharge Information Feeding Method Contraceptive Method Maternal HG B and HCT Levels Ob Episode Information Episode Created Date Number of Fetuses Patient Bloodtype Patient rh Status Prepregnancy Weight lbs Domestic Partner Domestic Partner Phone Father Name Automation Mechanic Status 08/09/19 24 1 CLOSED Fetus Data First Name Last Name Admitted to NICU Weight (g) Sex Living Outcome Pediatric Complications Fetus ID Race Codes Race Delivery Type 3572.03 7 F Full Term 15763 Samanta Calculation Initial Samanta Date Initial Exam Date Initial Exam Provider Initial Ultrasound Date Last Menstrual Period Date Ultra Sound Weeks Gestation 0 Eighteen To Twenty Week Samanta Update Ultra Sound Date Fundal Height At Umbil Quickening Date Ultra Sound Latest Weeks Gestation Final Samanta Confirmed By Final Samanta Confirmed Date Final Samanta Date Ultra Sound Latest Days Gestation 0 0 Menstrual History Last Menstrual Date Menses Monthly On Bcp Conception Prior Menses Frequency Hcg Plus Date Menarche Onset Age Delivery Information Delivery Date Delivery Type Labor Anesthesia Weeks Gestation Incision Type Labor Labor Length Hrs Delivered By Post Complications Tubal Sterilization Discharge Date Comments 1 42 IOL. Malpositi oned. FTD. Discharge Information Feeding Method Contraceptive Method Maternal HG B and HCT Levels
--- OUTSIDE RECORDS SUMMARY | 2024-12-27 10:59 | XMS_ITS | Continuity of Care Document ---
Author Organization [facility] In [facility] Address [address] [place] [address] Care Team Providers Care Belt Worker Name Role Phone RYANNE CARROLL Primary Care Provider [phone] Assessment Encounter Date Assessment Date Assessment LastModified by Organization Details LastModified Time 12/18/2024 12/18/2024 See flowsheet [email or web address] Not avail able 12/18/2024 08:21:27 Plan of Treatment Reminders Order Date Submit Date Provider Last Modified By Organization Details Last Modified Time Details Appointments OB ESTABLISH ED 2024 01:30P M SANDOR DOMÍNGUEZ CNM Not available Not available Not available Lab None recorded. Referral None recorded. Procedures None recorded. Surgeries None recorded. Imaging None recorded. Medication Orders promethaz ine 25 mg tablet 2024 025 [id number], [id number] , [place], [address], 12/18/2024 14:27:10 Patient TargetsNo targets recorded. Patient InstructionsNo instructions recorded. Reason for Referral None Reported. Problems Name Problem SNOMED Code Status Onset Date Resolution Date Notes Provider Name and Address Organization Details Recorded Time Pregnanc y 00889263 Completed 202303/29/2024 SANDOR DOMÍNGUEZ CNM [address], [place], [address] , [facility] 17:02:08 History of anxiety state 065615059 Active Court with ex regardin g prior domestic issues PALOMO VIVAR CNM [address], [place], [address], [facility] 4 13:57:17 History of anxiety state 334698036 Completed Court with ex ross rosen prior domestic issues PALOMO VIVAR CNM [address], [place], [address], [facility] - [facility] 4 13:57:17 Migraine 20317644 Completed [address], [place], [address], [facility] - [facility] 4 13:57:17 Past pregnanc y history of section 913348228 Completed Op report reviewed -TOLAC ok [address], [place], [address], [facility] - [facility] 4 14:57:49 Fatigue 22385357 Active [address], [place], [address], [facility] - [facility] 4 13:45:42 Diastasi s recti 85508229 Completed Plan PT PP PALOMO VIVAR CNM [address], [place], [address], [facility] 4 13:57:17 Dysuria 40479453 Active 2023 PALOMO VIVAR CNM [address], [place], [address], [facility] - [facility] 4 13:55:20 Bacteria l vaginosi s in pregnanc y 52647896400 9109 Active 2023 PALOMO VIVAR CNM [address], [place], [address], [facility] - [facility] 4 15:33:40 Pregnanc y 22079962 Active [address], [place], [address], [place] [facility] 5 17:02:08 Past pregnanc y history of recurren t miscarri age Active 2024 x5, pt requesti ng vaginal progeste kelly SANDOR CATRACHITA, CNM [address], [place], [address], [place] [facility] 5 17:04:23 Past pregnanc y history of section 061194893 Active 2024 LTCS x2, RLTCS @ 39 weeks SANDOR CATRACHITA, CNM [address], [place], [address], [place] [facility] 5 17:05:20 Migraine 20843577 Active 2024 Neurolog y consult given SANDOR CATRACHITA, NICHELLEM [address], [place], [address], [place] [facility] 5 16:00:55 Problem Notes None recorded. Procedures Surgical History Date Name Laterality Status Provider Name and Address Organization Details Recorded Time 5 US First Trimester OB Single completed Radha Polo [place] [facility] 11/17/2024 14:11:12 4 C Time WEOG completed Kianna Nieves [place] [facility] 03/31/2024 16:15:02 4 delivery completed Piyush Trejo [place] [facility] 03/29/2024 10:05:23 4 US OB Complete / Structural Survey completed Carolina Bradshaw [place] [facility] 10/20/2023 09:01:43 4 [place] First Trimester OB Single completed Annette Fabian [place] [facility] 08/23/2023 12:20:47 2 Colposcopy completed Donald Angel [place] [facility] 08/09/2023 15:06:16 1 section completed Donald Angel [place] [facility] 08/09/2023 15:04:52 1 Date of [facility] 14:50:03 5 extraction of wisdom tooth completed Donald Parraqian [facility] 08/09/2023 15:05:23 procedure on shoulder completed Donald [facility] 08/09/2023 15:05:49 Imaging Results None recorded. Procedure Notes None recorded. Medical Equipment None Reported. Allergies Allergen ID Allergen Name Allergen Category Reaction Reaction Severity Criticality Documentation Date Start Date Code Code System Note Provider Name and Address Organization Details Recorded Time 78938 adhesive tape environme nt,medica tion other Not available [facility] 08/09/2023 34932 UNK Skin peeli ng. Redne ss and blist ers. VIVIAN CHAN, CN [address] [facility], [place], [address], [facility] 4 15:18:10 01886 iodine medicatio n other Not available high [...] Address Organization Details Last Updated DateTime 12/18/2024 03825.7029 g 116 mm[Hg] 62 mm[Hg] Mahsa Bryan [facility] 12/18/2024 14:15:28 Social History Question Answer Notes LastModified by Organizat ion Details LastModified Time Tobacco Smoking Status Never Smoker Donald Boydmarlenqian jabari [facility] 08/09/2023 15:00:25 Do You Have An Advance [...] Have You Used? MJ Last Use 01/2023. [email or web address] Information not available 08/09/2023 What Is The Highest Grade Or Level Of School You Have Completed Or The Highest Degree You Have Received? [id number] Information not available 08/09/2023 Have There Been Any Changes To Your Family Or Social Situation? No Lives In [place] And [place] Information not available 08/09/2023 Are There Any [...] anxious, or unable to sleep at night)? [id number] Information not available 08/09/2023 Do you have [...] available 2023 14:59:05 Medical History Condition Response Depression N Headaches/Migraines Y Anxiety Disorder Y Infertility N Polyps N Acid Reflux (GERD) N Varicosities N Stroke N Fibromyalgia N Neurological/Seizures N Kidney Disease N Acne N Eating Disorder N Asthma N Lung Disease N Defects or Inherited Disease N Anesthesia Complications N Endometriosis N Thyroid Problems N GI Problems N Anemia Y Varicella status N Psychiatric Illness N Diabetes N Blood Transfusions N Abuse/Domestic Violence N Heart Disease N Pre-Eclampsia N Hypertension N Other Y Vaccines N Arthritis N Cancer N Heart Problems N Kidney or Bladder Problems N Hepatitis N Thrombophilias N Breast Cancer N Breast Problem N Sickle Cell Anemia N Cystic Fibrosis N High Cholesterol N Ovarian Cancer N Eczema N Osteoporosis N Gynecological History Statement/Question Response Abnormal Pap [...] SNOMED-CT Code Diagnosis ICD10 Code Diagnosis Note [id number] SANDOR DOMÍNGUEZ CNM [place] [address] [facility],[address] [place] [address] 11/17/2024 13:52:05 11/17/2024 15:02:39 Normal 25556344 Z34.90 Refractory migraine without aura 143178176 G43.019 Gestation period, 10 weeks 05321416 Z3A.10 [id number] SANDOR DOMÍNGUEZ CNM [place] [address] [facility],[address] [place] [address] 11/17/2024 13:51:35 11/17/2024 14:11:54 screening 133495251 Z36.87 [id number] SANDOR CATRACHITA, [facility] [address] [place] [address] 12/15/2024 14:37:07 12/15/2024 15:26:57 Normal 04071474 Z34.80 Acute migraine 015459974 1 44337 G43.909 Gestation period, 14 weeks 43968870 Z3A.14 Hyperemesi s gravidarum 69015981 O21.0 [id number] [facility] [address] [address] 12/18/2024 14:07:08 12/18/2024 14:26:04 Normal 96471008 Z34.80 Nausea and vomiting in 5086933093 O21.9 Health Concerns Section Related Observation LastModified by Organization Detai ls LastModified Time None Recorded Concern Status LastModified by Organization Details LastModified Time None Recorded Payers Encounter Date Sequence Insurance Name Policy Number Policy Greene Covered Member ID Greene Member ID Guarantor Name 12/18/2024 1 [facility] [id number] Karol Cuello [id number] Karol Noel Episode Ob Episode Information Episode Created Date Number of Fetuses Patient Bloodtype Patient rh Status Prepregnancy Weight lbs Domestic Partner Domestic Partner Phone Father Name Jewelry Estimator Status 11/11/19 25 1 A Positive OPEN Fetus Data First Name Last Name Admitted to NICU Weight (g) Sex Living Outcome Pediatric Complications Fetus ID Race Codes Race Delivery Type [id number] Problems Problem Notes Problem Name Start Date End Date Resolution Snomed Code Not e Past history of recurrent miscarriage 11/10/2024 9753123330 x5, pt requesti ng vaginal progesterone Past history of section 11/10/2024 732480629 LTCS x2, RLTCS @ 39 weeks Migraine 11/17/2024 11658883 Neurology consult given Samanta Calculation Initial Samanta [...] in lbs Pre/Post Dialysis Refused With clothes 169.306685837349 BP Diastolic BP Location Tested BP Systolic [...] in lbs Pre/Post Dialysis Refused With clothes 173.11420330592 BP Diastolic BP Location Tested BP Systolic [...] consult and MD in hospital as needed. [facility] Pt reports frequent migraines. Currently taking Excedrin [...] will report if experienced. RTO 4wks OBV. [facility] Flowsheet Date 12/15/2024 Yuen Score Blood Edema Fundus Height Fundus Units Glucose Ketones Leukocytes Nitrite Labor Signs Protein Cervic Dilation Cervic Effacement Cervic Station Type Weight in lbs Pre/Post Dialysis Refused 168.087668447607 BP Diastolic BP Location Tested BP Systolic [...] not resolved with recommended treatment. Referral to [facility] sent. Rev'd NOB labs, WNLs. Rev'd s/s of SpAB and preeclampsia to report. RTO 2 wks OBV for continued evalution of hyperemesis gravidarum and headaches. [facility] Flowsheet Date 12/18/2024 Yuen Score Blood Edema Fundus Height Fundus Units Glucose Ketones Leukocytes Nitrite Labor Signs Protein Cervic Dilation Cervic Effacement Cervic Station none Type Weight in lbs Pre/Post Dialysis Refused Stated 170.139592039049 BP Diastolic BP Location Tested BP Systolic [...] she has enough Zofran. -- Returns to [place] this afternoon and will pick it up at different pharmacy (coparents another child and so is traveling frequently).-- Advised to go to ER for continued sxs of refractory nausea/vomiting that lasts >24 hrs, unable to keep fluids down.RISHABH, NICHELLE Menstrual History Last Menstrual Date Menses Monthly On Bcp Conception Prior Menses Frequency Hcg Plus Date Menarche Onset Age Delivery Information Delivery Date Delivery Type Labor Anesthesia Weeks Gestation Incision Type Labor Labor Length Hrs Delivered By Post Complications Tubal Sterilization Discharge Date Comments Discharge Information Feeding Method Contraceptive Method Maternal HG B and HCT Levels
--- OUTSIDE RECORDS SUMMARY | 2024-12-27 10:59 | XMS_ITS | Clinical Summary ---
Author Organization [facility] Address [id number] [address] [place] [address] Care Team Providers Care Internal Controls Specialist Name Role Phone No Pcp, No Pcp Primary Care Provider Unavailabl e Allergies Active Allergy Reactions Criticality Noted Date Comments Adhesive Tape-Silicones Other (See Comments) 02/20/2024 ABDOMINAL DRESSING LEFT 2ND DEGREE BLACKBURN ON SKIN AFTER . Medications ketorolac (TORADOL) 10 mg tablet Take 1 tablet (10 mg total) by mouth every 6 (six) hours as needed for pain. 20 tablet 08/13/2024 Active Active Problems No known active problems Encounters Date Type Department Care Team Description 11/30/2024 Orders Only [facility] Ob[facility]etric[facility]-Gynecology [address] [address] Ema Rubin MD Encounter to determine viability of , single or unspecified fetus (Primary Dx) from Last 3 Months Social History Tobacco Use Types Packs/Day Years Used Date Smoking Tobacco: Never Smokeless Tobacco: Never Tobacco Cessation:Counseling Given: Not Answered Alcohol Use Standard Drinks/Week Comments Not Currently 0 (1 standard drink = 0.6 oz pur e alcohol) PRAPARE - Transportation Answer Date Re corded In the past 12 months, has l ack of transportation kept you from medical appointments or from getting medications? No 02/09 In the past 12 months, has l ack of transportation kept you from meetings, work, or from getting things needed for daily living? No 02/20/2024 Housing Instability Answer Date Recorde d Are you worried or concerned that in the next two months you may not have stable housing that you own, rent or stay in as a part of a household? No 02/20/2024 Hunger Screening Answer Date Recorded Within the past 12 months we worried whether our food would run out before we got money to buy more. Never True 02/20/2024 Within the past 12 months th e food we bought just didn't last and we didn't have money to get more. Never True 02/20/2024 Comments No Sex and Gender Information Value Date Recorded Sex Assigned at Not on file Legal Sex Female 4:38 PM EDT Gender Identity Not on file Sexual Orientation Not on file Last Filed Vital Signs Vital Sign Reading Time Taken Comments Blood Pressure 112/90 08/13/2024 2:59 PM EST Pulse 80 08/13/2024 2:59 PM EST Temperature 36.6 C (97.9 F) 08/13/2024 2:59 PM EST Respiratory Rate 14 08/13/2024 2:59 PM EST Oxygen Saturation 98% 08/13/2024 2:59 PM EST Inhaled Oxygen Concentration - - Weight 79.4 kg (175 lb) 08/13/2024 2:54 PM EST Height 157.5 cm (5' 2 ) 08/13/2024 2:54 PM EST Body Mass Index 32.01 08/13/2024 2:54 PM EST Plan of Treatment Health Maintenance Due Date Last Done Comments DTaP,Tdap and Td Vaccines (6 - Tdap) 2009 04/13/2002, 09/09/1999, 1998, Additional history exists Depression Screening 2010 Adult BMI Follow Up Plan 02/01/2016 Pap Smear 2019 Tobacco Screening 02/19/2025 02/20/2024 Influenza Vaccine 03/12/2025 07/07/2017 Adult BMI Screening 08/13/2025 08/13/2024 Medical Devices Not on file Insurance [facility] Care Teams Internal Controls Specialist Relationship Specialty Start Date End Date No Pcp, No Pcp [place] [id number] PCP - General Family Medicine 08/13/24
--- OUTSIDE RECORDS SUMMARY | 2024-12-27 10:59 | XMS_ITS | Encounter Summary ---
Author Organization [facility] [address] Care Team Providers Care Heating And Cooling Technician Name Role Phone Matt Viramontes S.I., MD Primary Care Provider [phone] Encounter Details Date Type Department Care Team (Late st Contact Info) Description 10/28/2015 Procedure [facility] [place] [address] Social History Smoking Status as of 10/24/2015 Tobacco Use Types Packs/Day Years Used Date Smoking Tobacco: Never Smokeless Tobacco: Never Alcohol Use as of 10/24/2015 Alcohol Use Standard Drinks/Week Comments No 0 (1 standard drink = 0.6 oz pur e alcohol) Sexual Activity as of 10/24/2015 Sexually Active Control Partners Comments Never Substance Use as of 10/24/2015 Substance Use Types Use/Week Comments No Comments No Sex and Gender Information Value Date Recorded Sex Assigned at Not on file Legal Sex Female 2:25 PM EST Gender Identity Not on file Sexual Orientation Not on file documented as of this encounter Last Filed Vital Signs Vital Sign Reading Time Taken Comments Blood Pressure - - Pulse - - Temperature - - Respiratory Rate - - Oxygen Saturation - - Inhaled Oxygen Concentration - - Weight 59 kg (130 lb 1.1 oz) 10/28/2015 12:04 PM EDT Height - - Body Mass Index 24.18 10/24/2015 7:44 AM EDT Body Mass Index Percentile 78.18% 10/28/2015 12: 04 PM EDT Growth Chart: [facility] (Girls, 2- 20 Years) documented in this encounter Plan of Treatment Not on file documented as of this encounter Visit Diagnoses Not on filedocumented in this encounter Care Teams Heating And Cooling Technician Relationship Specialty Start Date End Date Matt Viramontes S.I., MD [address] [facility] [place] [address] PCP - General Pediatrics 10/25/15 documented as of this encounter
--- OUTSIDE RECORDS SUMMARY | 2024-12-27 10:59 | XMS_ITS | Referral Summary ---
Author Organization [facility] [place] [address] Care Team Providers Care Director Of It Operations Name Role Phone Matt Viramontes S.I., MD Primary Care Provider [phone] Allergies No known active allergies Medications No known medications Active Problems Problem Noted Date Diagnosed Date Ligamentous laxity of right shoulder 10/24/2015 Benign hypermobility syndrome 09/06/2015 Biceps tendinitis on right 09/06/2015 Shoulder pain, right Social History Tobacco Use Types Packs/Day Years Used Date Smoking Tobacco: Never Smokeless Tobacco: Never Alcohol Use Standard Drinks/Week Comments No 0 (1 standard drink = 0.6 oz pur e alcohol) Sexually Active Control Partners Comments Never Substance Use Types Use/Week Comments No Comments No Sex and Gender Information Value Date Recorded Sex Assigned at Not on file Legal Sex Female 2:25 PM EST Gender Identity Not on file Sexual Orientation Not on file Last Filed Vital Signs Vital Sign Reading Time Taken Comments Blood Pressure 98/74 10/24/2015 7:44 AM EDT Pulse 80 10/24/2015 7:44 AM EDT Temperature - - Respiratory Rate 16 10/24/2015 7:44 AM EDT Oxygen Saturation - - Inhaled Oxygen Concentration - - Weight 59 kg (130 lb 1.1 oz) 10/28/2015 12:04 PM EDT Height 156.2 cm (5' 1.5 ) 10/24/2015 7:44 AM EDT Body Mass Index 24.18 10/24/2015 7:44 AM EDT Plan of Treatment Scheduled Referrals Name Type Priority Associated Diagnoses Orde r Schedule Ambulatory referral to Orthopedic Surgery Outpatient Referral Routine Chronic right shoulder pain Ligamentous laxity of right shoulder Ordered: 10/24/2015 Ambulatory referral for Orthotics Outpatient Referral Routine Benign hypermobility syndrome Biceps tendinitis on right Shoulder pain, right Ordered: 10/15/2015 Amb ref to [facility] Outpatient Referral Routine Benign hypermobility syndrome Shoulder pain, right Biceps tendinitis on right Ordered: 09/06/2015 Insurance [employer] Care Teams Director Of It Operations Relationship Specialty Start Date End Date Matt Viramontes S.I., MD [address] [facility] [place], [place] [address] PCP - General Pediatrics 10/25/15
--- OUTSIDE RECORDS SUMMARY | 2024-12-27 10:59 | XMS_ITS | Clinical Summary ---
Author Organization [facility] Address [address] [place] [address] Care Team Providers Care Maintainer Central Office Name Role Phone Evie Madrid DO Primary Care Provider [phone] Allergies Active Allergy Reactions Criticality Noted Date Comments Iodine Other High 06/23/2016 When applied to skin caused blisters( betadine solution) Wound Dressing Adhesive Hives,Rash/Itching High 07/06/2016 Medications FIORICET 50-300-40 MG per etended-release capsule Take 1 capsule by mouth every 4 hours as needed. 5 Active cholecalciferol (VITAMIN D3) 50 MCG (1999 UT) capsule Take 50 mcg by mouth daily. 5 Active metoclopramide (REGLAN) 10 MG tablet Take 10 mg by mouth 3 times daily (before meals). 5 Active ondansetron (ZOFRAN-ODT) 4 mg disintegrating tablet Take 4 mg by mouth every 6 hours as needed for Nausea/Vomit ing. Active Pyridoxine HCl (VITAMIN B6 PO) Take 1 tablet by mouth daily. Active doxylamine (UNISOM) 25 MG Take 25 mg by mouth nightly as needed for Sleep. Active EPINEPHrine 0.3 MG/0.3ML auto-injector 3 025 Discontin ued(No Longer Taking) ondansetron (ZOFRAN-ODT) 4 mg disintegrating tablet take 1 Tablet by mouth every 6 hours as needed for FOR NAUSEA/VOMIT ING. 15 tablet 0 3 025 Discontin ued(Other ) ibuprofen (MOTRIN) 600 mg tablet take 1 Tablet by mouth every 8 hours as needed for FOR MODERATE PAIN. 20 tablet 0 3 025 Discontin ued(No Longer Taking) escitalopram (LEXAPRO) 10 mg tablet take 1 Tablet by mouth once daily. 30 tablet 1 3 025 Discontin ued(No Longer Taking) famotidine (PEPCID) 20 mg tablet take 1 Tablet by mouth twice daily. 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 Menorrhagia with regular cycle 02/18/2023 Iron deficiency anemia due to chronic blood loss 02/18/2023 Anxiety 02/18/2023 Encounters Date Type Department Care Team Description 12/16/2024 3:02 PM EDT - 12/17/2024 11:00 AM EDT Hospital Encounter [facility] [address] [place] [address] Ana Cristina Miranda MD Hyperemesis gravidarum ([facility]) (Primary Dx) Discharge Disposition: Home or Self Care from Last 3 Months Immunizations Immunization Administration Dates Next Due DTaP (Ped) Infanrix 04/13/2002, 0,1998,1997,1998 HPV9 (Gardasil 9) 01/22/2023 Hepb (Unspecified) 03/26/1999,1998, 998 Hib (Unspecified) 03/26/1999, 9,1998,1997 INFLUENZA CCIIV4 (FLUCELVAX QUAD P-free,inj) 07/07/2017 IPV 04/13/2002,1998,1998 MMR 04/13/2002,03/26/1999 OPV 03/26/1999 Family History Medical History Relation Name Comments Hypertension Father Cervical Cancer Maternal Grandmother Bipolar Disorder Mother Bipolar Disorder Sister Gout Sister Kayley Disease Sister Relation Name Status Comments Father Alive [...] Orientation Straight 09/27/2023 10 :24 PM EDT Last Filed Vital Signs Vital Sign [...] Mass Index 30.24 12/16/2024 2:31 PM EDT Plan of Treatment Health Maintenance Due Date Last Done Comments DTaP/Tdap/Td Vaccine (6 - Tdap) 2009 04/13/2002, 09/09/1999, 1998, Additional history exists Cervical Cancer Screening 2019 HPV Vaccine (2 - 3-dose series) 02/19/2023 Health Maintenance Exam (Adult) 01/23/2024 , 01/22/2023 Flu Vaccine (#1) 02/10/2024 07/07/2017 COVID-19 Vaccine (2 5 season) 2024 Hepatitis B Vaccine Completed 03/26/1999, 1998, 1998 HIV SCREENING Completed 01/26/2023, 01/09, 01/26/2023 Hepatitis C Antibody Screening Completed 01/26/2023 , 01/26/2023 Medical Devices Implanted Type Area [employer]umber [employer]ager Device Identifier Shelf Expiration Date Model / Serial / Lot Pushlock,Short ,2.9x12.5, [id number] Implanted:Qty: 1 on 12/19/2015 by Ravi Nayak MD Right: Shoulder 08/11/2020 [id number] / / [id number] Pushlock,Short ,2.9x12.5, [id number] Implanted:Qty: 1 on 12/19/2015 by Ravi Nayak MD Right: Shoulder 08/11/2020 [id number] / / [id number] Pushlock,Short ,2.9x12.5, [id number] Implanted:Qty: 1 on 06/25/2016 by Ravi Nayak MD Left: Shoulder 07/26/2020 [id number] / N/A / [id number] Pushlock,Short ,2.9x12.5, [id number] Implanted:Qty: 1 on 06/25/2016 by Ravi Nayak MD Left: Shoulder 02/23/2021 [id number] / N/A / [id number] Pushlock,Short ,2.9x12.5, [id number] Implanted:Qty: 2 on 06/24/2017 by Ravi Nayak MD Left: Shoulder 02/08/2022 [id number] / / [id number] Procedures Procedure Name Priority Date/Time Associated Diagnosis [...] ELECTROCARDIOGRAM, COMPLETE STAT 12/16/2024 4:07 PM EDT HCG, QUANTITATIVE STAT 12/16/2024 3:3 1 PM EDT BASIC METABOLIC PANEL STAT 12/16/2024 3:31 PM EDT COMPLETE BLOOD COUNT (CBC) W/DIFFERENTIAL STAT 12/16/2024 3:31 PM EDT EXT HIV4G Routine 01/26/2023 9:40 AM EDT Screening for HIV (human immunodeficiency virus) EXT HEPATITIS C VIRUS (HCV) ANTIBODY Routine 01/26/2023 9:40 AM EDT Need for hepatitis C screening test from Last 3 Months or Most Recently Relevant to Health Maintenance Results * Urine Mathur Tube (12/17/2024 6:38 AM EDT) Only the most recent of3 resultswithin the time period is included. Urine URINE SPECIMEN OBTAINED BY CLEAN CATCH PROCEDURE / Unknown 12/17/2024 6:38 AM EDT 12/17/2024 6:43 AM EDT us Ana Cristina Miranda MD LAB URINE ORDERABLES Final Re sult [facility] [address] [place] [address] * Urinalysis With Microscopic (12/17/2024 6:38 AM EDT) Only the most recent of3 resultswithin the time period is included. Urine Color Yellow 12/17/2024 6:51 AM EDT [facility] Urine Clarity Clear Clear 12/17/2024 6:51 AM EDT [facility] Urine Glucose Negative Negative mg/dL 12/17/2024 6:51 AM EDT [facility] Urine Bilirubin Negative Negative 6:51 AM EDT [facility] Urine Ketones Negative Negative mg/dL 12/17/2024 6:51 AM EDT [facility] Urine Specific [place] 1.017 1.005 - 1.030 12/17/2024 6:51 AM EDT [facility] Urine Blood Negative Negative 12/17/2024 6:51 AM EDT [facility] U pH 7.5 5.0 - 8.0 12/17/2024 6:51 AM EDT [facility] Urine Protein Negative Negative mg/dL 12/17/2024 6:51 AM EDT [facility] Urine Urobilinogen 1.0 <2.0 mg/dL 12/17/2024 6:51 AM EDT [facility] Urine Nitrite Negative Negative 12/17/2024 6:51 AM EDT [facility] Urine Leukocyte Esterase Negative Negative 12/17/2024 6:51 AM EDT [facility] Urine RBC 0-2 0-2 Negative /HPF 12/17/2024 6:51 AM EDT [facility] Urine WBC 0-5 0-5 Negative /HPF 12/17/2024 6:51 AM EDT [facility] Urine Squamous Epithelial Cells 0-2 0 - 5 /HPF 12/17/2024 6:51 AM EDT [facility] Comment:Epithelial cell coun t may include squamous, transitional and renal tubular epithelial cells Urine Hyaline Casts 0-2 0-2 Negative /LPF 12/17/2024 6:51 AM EDT [facility] Comment: Total cast count will include hyaline casts and may include pathologic casts. See report below for pathologic casts identification, if present. Urine Bacteria Negative Negative /HPF 12/17/2024 6:51 AM EDT [facility] Urine URINE SPECIMEN OBTAINED BY CLEAN CATCH PROCEDURE / Unknown 12/17/2024 6:38 AM EDT 12/17/2024 6:43 AM EDT Ana Cristina Miranda MD LAB URINE ORDERABLES Final Re sult [facility] [address] [facility] [place] [address] * Electrocardiogram, Complete (12/16/2024 4:07 PM EDT) 12/16/2024 4:07 PM EDT 12/16/2024 5:36 PM EDT Count includes the [facility] CARDIOLOGY - 12/16/2024 5:36 PM EDT Ventricular Rate 73 BPM Atrial Rate 73 BPM P-R Interval 176 ms QRS Duration 88 ms Q-T Interval 400 ms QTC Calculation(Bazett) 440 ms Calculated P [place] 29 degrees Calculated R [place] 18 degrees Calculated T [place] 2 degrees Diagnosis Normal sinus rhythm Normal ECG No previous ECGs available Confirmed by Fernando Crockett ([id number]) on 12/16/2024 5:36:07 PM Procedure Note Fernando Crockett MD - 12/16/2024 Ventricular Rate 73 BPM Atrial Rate 73 BPM P-R Interval 176 ms QRS Duration 88 ms Q-T Interval 400 ms QTC Calculation(Bazett) 440 ms Calculated P [place] 29 degrees Calculated R [place] 18 degrees Calculated T [place] 2 degrees Diagnosis Normal sinus rhythm Normal ECG No previous ECGs available Confirmed by Fernando Crockett ([id number]) on 12/16/2024 5:36:07 PM us Ana Cristina Miranda MD ECG ORDERABLES Final Result [facility] CARDIOLOGY * (ABNORMAL) Complete Blood Count w/Differential (12/16/2024 3:31 PM EDT) White Blood Cell 10.8(H) 3.3 - 10.7 x10*9/L 12/16/2024 3:41 PM EDT [facility] Red Blood Cell 4.46 3.87 - 5.08 x10*12/L 12/16/2024 3:41 PM EDT [facility] Hemoglobin 11.1(L) 12.1 - 15.0 g/dL 12/16/2024 3:41 PM EDT [facility] Hematocrit 34.3(L) 35.4 - 44.2 % 12/16/2024 3:41 PM EDT [facility] Mean Cell Volume 76.9(L) 79.5 - 100.4 fL 12/16/2024 3:41 PM EDT [facility] Mean Cell Hemoglobin 24.9(L) 27.5 - 33.4 pg 12/16/2024 3:41 PM EDT [facility] Mean Cell Hemoglobin Concentration 32.4 31.5 - 35.4 g/dL 12/16/2024 3:41 PM EDT [facility] Red Cell Distribution Width 14.3 11.5 - 15.4 % 12/16/2024 3:41 PM EDT [facility] Platelet 255 150 - 400 x10*9/L 12/16/2024 3:41 PM EDT [facility] Mean Platelet Volume 10.6 8.0 - 12.0 fL 12/16/2024 3:41 PM EDT [facility] Neutrophil Automated Absolute 8.47(H) 1.55 - 7.24 x10*9/L 12/16/2024 3:41 PM EDT [facility] Lymphocyte Automated Absolute 1.82 1.05 - 4.04 x10*9/L 12/16/2024 3:41 PM EDT [facility] Monocyte Automated Absolute 0.42 0.00 - 0.84 x10*9/L 12/16/2024 3:41 PM EDT [facility] Eosinophil Automated Absolute 0.04 0.00 - 0.54 x10*9/L 12/16/2024 3:41 PM EDT [facility] Basophil Automated Absolute 0.02 0.00 - 0.14 x10*9/L 12/16/2024 3:41 PM EDT [facility] Immature Granulocyte Automated Absolute 0.06(H) 0.00 - 0.03 x10*9/L 12/16/2024 3:41 PM EDT [facility] Immature Granulocyte Automated 0.6 0.0 - 1.0 % 12/16/2024 3:41 PM EDT [facility] NUCLEATED RED BLOOD CELLS AUTOMATED 0.0 <=0.0 % 12/16/2024 3:41 PM EDT [facility] Blood VENOUS BLOOD SPECIMEN / Unknown Collection / Unknown 12/16/2024 3:31 PM EDT 12/16/2024 3:34 PM EDT us Ana Cristina Miranda MD LAB BLOOD ORDERABLES Final Re sult [facility] [address] [place], [place] [id number] * (ABNORMAL) Beta Human Chorionic Gonadotropin (hCG) Quantitative (12/16/2024 3:31 PM EDT) Human Chorionic Gonadotropin Quantitative 64,297(H) <=5 mIU/mL 12/16/2024 4:34 PM EDT [facility] Blood VENOUS BLOOD SPECIMEN / Unknown Collection / Unknown 12/16/2024 3:31 PM EDT 12/16/2024 3:35 PM EDT us Ana Cristina Miranda MD LAB BLOOD ORDERABLES Final Re sult [facility] [address] [place] [address] * (ABNORMAL) Basic Metabolic Panel (BMP) (12/16/2024 3:31 PM EDT) Sodium 134(L) 135 - 145 mmol/L 12/16/2024 4:16 PM EDT [facility] Potassium 3.8 3.5 - 5.2 mmol/L 12/16/2024 4:16 PM EDT [facility] Chloride 106 98 - 111 mmol/L 12/16/2024 4:16 PM EDT [facility] Bicarbonate 19(L) 20 - 29 mmol/L 12/16/2024 4:16 PM EDT [facility] Anion Gap 9 5 - 17 mmol/L 12/16/2024 4:16 PM EDT [facility] Glucose 89 70 - 99 mg/dL 12/16/2024 4:16 PM EDT [facility] Blood Urea Nitrogen (BUN) 5(L) 7 - 25 mg/dL 12/16/2024 4:16 PM EDT [facility] Creatinine 0.53 0.50 - 1.10 mg/dL 12/16/2024 4:16 PM EDT [facility] eGFR 133 >60 mL/min/1. 73 m2 12/16/2024 4:16 PM EDT [facility] Comment: Calculation based on the Chronic [...] - 10.5 mg/dL 12/16/2024 4:16 PM EDT [facility] Blood VENOUS BLOOD SPECIMEN / Unknown Collection / Unknown 12/16/2024 3:31 PM EDT 12/16/2024 3:35 PM EDT Ana Cristina Miranda MD LAB BLOOD ORDERABLES Final Re sult [facility] [address] [place] [address] * EXT Hepatitis C Virus (HCV) Antibody (01/26/2023 9:40 AM EDT) EXT Hepatitis C Virus Antibody (HCV) Nonreactive Nonreactive [facility] (CLIA#: [id number]) Comment:No further action re quired unless recent infection is suspected, or other evidence exists to indicate HCV infection. If recent exposure is suspected, recommend HCV RNA quantitation by PCR. Blood VENOUS BLOOD SPECIMEN / Unknown 01/26/2023 9:40 AM EDT 01/26/2023 11:13 AM EDT Andressa Coon MD LAB BLOOD ORDERABLES Final Re sult [facility] (CLIA#: [id number]) [address] [place] [address] * EXT HIV4G (01/26/2023 9:40 AM EDT) EXT HIV-1 P24 Antigen/HIV-1/ 2 Antibody Screen Nonreactive Nonreactive [facility] (CLIA#: [id number]) Comment: HIV-1 p24 antigen and HIV-1/HIV-2 antibodies were not detected. There is no laboratory evidence of HIV infection. However, if a recent exposure is suspected, recommend repeat testing in 4 weeks. Blood VENOUS BLOOD SPECIMEN / Unknown 01/26/2023 9:40 AM EDT 01/26/2023 9:44 AM EDT us Andressa Coon MD LAB BLOOD ORDERABLES Final Re sult [facility] (CLIA#: [id number]) [facility] (CLIA#: [id number]) [address] [place] [address] from Last 3 Months or Most Recently Relevant to Health Maintenance Insurance [facility] Care Teams Maintainer Central Office Relationship Specialty Start Date End Date Evie Madrid DO [address] [place] [address] PCP - General Family Medicine 12/16/24
[2024-12-27 11:11] VITALS: BP 107/79; PULSE 106; TEMP 36.7; O2SAT 98; BMI 30.2
--- NOTE | 2024-12-27 11:20 | ED_ITS ---
HPI HPI - General Adult General Chief complaint: Nausea/Vomiting/Diarrhea Stated complaint: 17 WEEKS VOMITING Time Seen by Provider: 12/27/24 11:18 Source: patient Mode of arrival: Wheelchair Limitations: no limitations History of Present Illness HPI narrative: Patient is a 24 yo female who is presenting to the ER today with chief complaint of acute on chronic nausea and vomiting. Patient has a history of hyperemesis gravidarum. Patient is a . Patient's had no with her first 2 pregnancies. Patient saw her WINDOW CLEANER yesterday in [place]. Patient went to the ER at [facility] , there was a 4-hour wait, she did not wait at all, she left. Patient went to [facility] at the recommendation of her WINDOW CLEANER to get IV fluids. Patient has been to the ER multiple times during this for IV fluids. Patient has been diagnosed with hyperemesis gravidarum. She has Compazine and Phenergan to use at home. Patient has no suppositories, states Zofran does not help, and makes it worse with her vomiting. She has no pelvic pain, no vaginal bleeding. Patient states has been hard to find her heart tones at this , but they were able to find them yesterday. Patient still feels baby moving and very active. Patient had a headache and migraine yesterday, and this was another reason why she was going to the ER yesterday but because she had to wait 4 hours, she went home to lay down in dark and sleep. Patient states she has to drive back and forth 2 or 3 times to [place] every week, she currently is living with her boyfriend and kids in [place]. Patient has no chest pain or shortness of breath. No flank pain or back pain. No urinary frequency urgency or burning. No acute complaints. All systems are negative except as noted/marked. All systems reviewed and otherwise negative. Nurses note and vital signs reviewed and patient is not hypoxic. Slightly tachycardic, General: The patient appears well and in no apparent distress. Patient is resting comfortably on cart. Patient is not toxic, lethargic, or listless Skin: Warm, dry, no pallor noted. There is no rash noted. No petechiae, purpura. Head: Normocephalic, atraumatic Eye: Normal conjunctiva, no drainage, EOMI. PERRL Ears, Nose, Mouth, and Throat: oral mucosa is slightly dry Nares patent. Mouth without vesicles. Cardiovascular: Regular Rate and Rhythm, no murmur, gallop, rub Respiratory: Patient is in no distress, no accessory muscle use, lungs are clear to auscultation, no wheezing, rales or rhonchi Back: non-tender, no CVA tenderness bilaterally to percussion. No CT LS midline pain GI: Soft, gravid, up to approximately 17-18 weeks top of her uterus palpated. No tenderness to palpation, no masses appreciated. No rebound, guarding, or rigidity noted. No distention Musculoskeletal: Patient has full range of motion of all of the extremities, no motor, sensory, or focal neurological deficits Neurological: A&O x4, normal speech Psychiatric: Cooperative Related Data Home Medications ?Medication ?Instructions ?Recorded ?Confirmed PO DAILY 11/16/24 ondansetron 4 mg disintegrating 4 mg PO TID-QID PRN na usea and 11/16/24 11/16/24 tablet vomiting Previous Rx's ?Medication ?Instructions ?Recorded promethazine 25 mg rectal 25 mg ME Q6H PRN nausea and 12/27/24 suppository vomiting #6 ea Allergies Allergy/AdvReac Type Severity Reaction Status Date / Time adhesive tape Allergy Rash Verified 12/27/24 11:11 Opioid HPI Opioid Management Most Recent Opioid Data: Last Pain Scale 3 Today, 11:11 PFSH PFSH Social History Little interest or pleasure in doing things: not at all Feeling down, depressed, or hopeless: not at all Exam Constitutional Vital Signs, click to edit/add: Last Vital Signs Temp 98.1 F 12/27/24 11:11 Pulse 85 12/27/24 14:03 Resp 18 12/27/24 14:03 BP 104/72 12/27/24 14:03 Pulse Ox 99 12/27/24 14:03 O2 Del Method Room Air 12/27/24 11:11 Course Vital Signs Vital signs: Vital Signs Temperature 98.1 F 12/27/24 11:11 Pulse Rate 106 H 12/27/24 11:11 Respiratory Rate 16 12/27/24 11:11 Blood Pressure 107/79 12/27/24 11:11 Pulse Oximetry 98 12/27/24 11:11 Oxygen Delivery Method Room Air 12/27/24 11:11 Temperature 98.1 F 12/27/24 11:11 Pulse Rate 85 12/27/24 14:03 Respiratory Rate 18 12/27/24 14:03 Blood Pressure 104/72 12/27/24 14:03 Pulse Oximetry 99 12/27/24 14:03 Oxygen Delivery Method Room Air 12/27/24 11:11 Medical Decision Making MDM Narrative Medical decision making narrative: Patient seen and examined: Patient have IV established, IV fluids, lab testing done. Differential diagnosis includes but is not limited to: Hyperemesis gravidarum, electrolyte abnormality, dehydration, gastroenteritis, UTI, pyelonephritis, Diagnostics and management: Patient will have laboratory studies Reevaluation: Patient felt significant improvement after 2 L of IV fluid was given. Patient feels much better after IV medication has been given as well. Shared decision making: I discussed with the patient the necessary laboratory findings and radiological findings. Social barriers to healthcare: There are no food insecurities, there is no issue with transportation, there are no insurance barriers. Disposition: I discussed with the patient that she has glucose in her urine. Her numbers 250 of glucose in her urine. Blaire COBB could not find heart tones. Patient states that they have been having a hard time finding heart tones during this . I performed bedside ultrasound myself, please see procedure note. I was able to find a good view of the heartbeat, this is unofficial ultrasound done by myself at bedside. However patient was extremely active the entire time during the ultrasound that I was doing at bedside for approximately 3 to 4 minutes trying to find the heartbeat. Patient is okay with me not finding the heartbeat, is happy they found the heartbeat yesterday, also the baby is extremely active during the entire ultrasound and patient is comfortable with that and did not want to wait longer to have ultrasound done by myself at bedside to find the heartbeat. Blaire COBB was a witness to this. Patient felt much better with IV fluids. Patient was sent home with Phenergan suppositories. Patient will follow-up with her WINDOW CLEANER at appointment on Wednesday. Patient was given copies of her lab test. Procedure note: Bedside ultrasound was performed by Dr. Henriquez with Blaire COBB at bedside as a witness. Baby was very active the entire time during the ultrasound. I could not find a heartbeat. Patient was comfortable with me stopping the ultrasound at bedside, because the baby has been very active the entire time and heartbeat was heard yesterday. This is a unofficial ultrasound done by myself. Lab Data Labs: Lab Results 12/27/24 12/27/24 Range/Units 11:25 12:50 WBC 9.5 (4.0-11.0) 10^3/uL RBC 4.94 (4.20-5.40) 10^6/uL Hgb 12.6 (12.0-16.0) g/dL Hct 37.5 (36.0-48.0) % MCV 75.9 L (81.0-99.0) fL MCH 25.5 L (26.7-34.0) pg MCHC 33.6 (29.9-35.2) g/dL RDW 14.3 (11.0-15.0) % Plt Count 306 (150-450) 10^3/uL MPV 10.3 (9.5-13.5) fL Neut % (Auto) 59.1 (43.0-75.0) % Lymph % (Auto) 32.5 (20.5-60.0) % [place] % (Auto) 6.6 (1.7-12.0) % Eos % (Auto) 1.1 (0.9-7.0) % Baso % (Auto) 0.3 (0.2-2.0) % Neut # (Auto) 5.6 (1.4-6.5) 10^3/uL Lymph # (Auto) 3.1 (1.2-3.8) 10^3/uL [place] # (Auto) 0.6 (0.3-0.8) 10^3/uL Eos # (Auto) 0.1 (0.0-0.7) 10^3/uL Baso # (Auto) 0.0 (0.0-0.1) 10^3/uL Abs Immat Gran (auto) 0.04 H (0.00-0.03) 10^3/uL Imm/Tot Granulo (auto) 0.4 (0.0-0.5) % Sodium 137 (136-145) mmol/L Potassium 3.6 (3.5-5.1) mmol/L Chloride 101 (98-107) mmol/L Carbon Dioxide 23.9 (21.0-32.0) mmol/L Anion Gap 15.7 BUN 6.0 L (7.0-18.0) mg/dL Creatinine 0.46 L (0.55-1.02) mg/dL Est GFR ( Amer) >60 (>=60 mL/min/1.73m^2) Est GFR (Non-Af Amer) >60 (>=60 mL/min/1.73m^2) BUN/Creatinine Ratio 13.0 Glucose 89 (74-106) mg/dL Calcium 8.6 (8.5-10.1) mg/dL Magnesium 1.8 (1.8-2.4) mg/dL Total Bilirubin 0.1 L (0.2-1.0) mg/dL AST 13 L (15-37) U/L ALT 13 L (14-59) U/L Alkaline Phosphatase 77 (46-116) U/L Total Protein 7.6 (6.4-8.2) g/dL Albumin 3.2 L (3.4-5.0) g/dL Globulin 4.4 g/dL Albumin/Globulin Ratio 0.7 Urine Color Yellow (YELLOW) Urine Clarity Clear (CLEAR) Urine pH 6.0 (5.0-9.0) Ur Specific [place] 1.025 (1.005-1.025) Urine Protein Negative (NEG/TRACE) mg/dL Urine Glucose (UA) 250 A (NEGATIVE) mg/dL Urine Ketones Trace A (NEGATIVE) mg/dL Urine Occult Blood Negative (NEGATIVE) Urine Nitrite Negative (NEGATIVE) Urine Bilirubin Negative (NEGATIVE) Urine Urobilinogen 0.2 (0.2-1.0) EU/dL Ur Leukocyte Esterase Negative (NEGATIVE) Urine RBC None seen (0-2) #/HPF Urine WBC 0-2 A (NONE SEEN) #/HPF Ur Squamous Epith Cells Few A (NONE/RARE) #/LPF Urine Crystals None seen (None Seen) #/HPF Urine Bacteria Trace A (NONE SEEN) #/HPF Urine Casts None seen (NONE SEEN) #/LPF Urine Mucus Large A (NONE SEEN) Ur Culture Indicated? No Discharge Plan Discharge Chief Complaint: Nausea/Vomiting/Diarrhea Clinical Impression: Nausea & vomiting, Glucosuria, Mild dehydration Patient Disposition: Home, Self-Care Time of Disposition Decision: 15:03 Condition: Good Prescriptions / Home Meds: New promethazine 25 mg suppository 25 mg ME Q6H PRN (Reason: nausea and vomiting) Qty: 6 0RF No Action ondansetron 4 mg tablet,disintegrating 4 mg PO TID-QID PRN (Reason: nausea and vomiting) PO DAILY Print Language: Panamanian Instructions: Dehydration (ED), Acute Nausea and Vomiting (ED) Additional Instructions: There is glucose in your urine. Copies of your lab test have been given to you. You have an appointment on Wednesday, make sure that you bring your lab test to your WINDOW CLEANER appointment. Show them to the 250 number of glucose in your urine today. Continue to increase fluids, Gatorade, Powerade, water. Use Phenergan suppositories if needed. Do not take Phenergan suppositories within 4 hours of taking Reglan or Phenergan tablets. Referrals: Physician,Non-Staff, MD [Primary Care Provider] - 1 week
[2024-12-27] MEDS: 0.9 % SODIUM CHLORIDE 1,000 ML 999 ML IV (11:31)
[2024-12-27 11:32] LABS: Basophils Percent Auto 0.3 % (0.2-2.0); Eosinophils Absolute Auto 0.1 10^3/uL (0.0-0.7); Eosinophils Percent Auto 1.1 % (0.9-7.0); Hematocrit 37.5 % (36.0-48.0); Hemoglobin 12.6 g/dL (12.0-16.0); Immature Granulocytes Abs Auto 0.04 10^3/uL (0.00-0.03); Immature Granulocytes Pct Auto 0.4 % (0.0-0.5); Lymphocytes Absolute Auto 3.1 10^3/uL (1.2-3.8); Lymphocytes Percent Auto 32.5 % (20.5-60.0); Mean Corpuscular HGB Conc 33.6 g/dL (29.9-35.2); Mean Corpuscular Hemoglobin 25.5 pg (26.7-34.0); Mean Corpuscular Volume 75.9 fL (81.0-99.0); Mean Platelet Volume 10.3 fL (9.5-13.5); Monocytes Absolute Auto 0.6 10^3/uL (0.3-0.8); Monocytes Percent Auto 6.6 % (1.7-12.0); Neutrophils Absolute Auto 5.6 10^3/uL (1.4-6.5); Neutrophils Percent Auto 59.1 % (43.0-75.0); Platelet Count 306 10^3/uL (150-450); Red Blood Count 4.94 10^6/uL (4.20-5.40); Red Cell Distribution Width 14.3 % (11.0-15.0); White Blood Count 9.5 10^3/uL (4.0-11.0)
[2024-12-27 11:57] LABS: Alanine Aminotransferase 13 U/L (14-59); Albumin Globulin Ratio 0.7; Albumin Level 3.2 g/dL (3.4-5.0); Alkaline Phosphatase 77 U/L (46-116); Anion Gap 15.7; Aspartate Amino Transferase 13 U/L (15-37); Bilirubin Total 0.1 mg/dL (0.2-1.0); Calcium 8.6 mg/dL (8.5-10.1); Carbon Dioxide 23.9 mmol/L (21.0-32.0); Chloride 101 mmol/L (98-107); Estimated GFR (African America >60 (>=60 mL/min/1.73m^2); Estimated GFR (Non-African Ame >60 (>=60 mL/min/1.73m^2); Globulin 4.4 g/dL; Glucose 89 mg/dL (74-106); Magnesium 1.8 mg/dL (1.8-2.4); Potassium 3.6 mmol/L (3.5-5.1); Sodium 137 mmol/L (136-145); Total Protein 7.6 g/dL (6.4-8.2)
[2024-12-27 12:51] VITALS: BP 93/55; PULSE 98; O2SAT 98
[2024-12-27] MEDS: 0.9 % SODIUM CHLORIDE 1,000 ML 1000 ML IV (12:58)
[2024-12-27 13:08] LABS: Bilirubin Urine NEGATIVE (NEGATIVE); Blood Urine NEGATIVE (NEGATIVE); Clarity Urine CLEAR (CLEAR); Color Urine YELLOW (YELLOW); Glucose Urine UA 250 mg/dL (NEGATIVE); Ketones Urine TRACE mg/dL (NEGATIVE); Leukocyte Esterase Urine NEGATIVE (NEGATIVE); Nitrite Urine NEGATIVE (NEGATIVE); Protein Urine NEGATIVE (NEG/TRACE); Specific Gravity Urine 1.025 (1.005-1.025); Urobilinogen Urine 0.2 EU/dL (0.2-1.0)
[2024-12-27 13:21] LABS: Bacteria Urine TRACE #/HPF (NONE SEEN); Cast Seen? NONE SEEN #/LPF (NONE SEEN); Crystals Seen? None Seen #/HPF (None Seen); Mucus Urine LARGE (NONE SEEN); RBC Urine NONE SEEN #/HPF (0-2); Squamous Epithelial Cell Urine FEW #/LPF (NONE/RARE); WBC Urine 0-2 #/HPF (NONE SEEN)
[2024-12-27 13:22] LABS: Urine Culture Indicated NO
[2024-12-27 14:03] VITALS: BP 104/72; PULSE 85; O2SAT 99
== END 2024-12-27 15:17 | disposition home or self-care (01) ==
PROVIDERS: Emergency Provider Emergency Medicine
DX: R11.2 Nausea with vomiting, unspecified (principal); R81 Glycosuria; E86.0 Dehydration
CPT/HCPCS: 36415; 80053; 81001; 83735; 85025; 96360; 96361; 99285